=== PATIENT | female | born 1945 | race Caucasian/White ===

== ENCOUNTER 2019-09-05 05:01 | Inpatient (IN) | payer MEDICARE, SELFPAY ==
[2019-09-05] VITALS (8 sets, daily range): BP systolic 144–178; BP diastolic 69–96; PULSE 59–79; RESP 16–18; TEMP 36.9; O2SAT 94–98; BMI 31.9
--- NOTE | 2019-09-05 05:09 | ED_ITS ---
Documented by User: Randell Salas DO 09/05/19 06:07 HPI - Chest Pain General: Chief Complaint: Chest Pain Stated Complaint: CHEST PAIN Time Seen by Provider: 09/05/19 05:06 History of Present Illness: HPI narrative: 74-year-old lady with no prior history of coronary disease presents with right-sided chest pain that is resolved now. She says she woke up around 3 AM, and the pain started shortly thereafter. Of note, this lady's a few days ago, and the is later today. MD complaint: chest pain Onset (ago): hour(s) (299) Timing of current episode: constant and now resolved Onset: during rest Pain location: right chest Pain radiation: none Quality: sharp Relieving factors: nothing Context: recent illness Associated symptoms: Deny dyspnea, fever(s), nausea, palpitations or vomiting Treatment prior to arrival: aspirin Review of Systems Const: Denies: fever or chills Eyes: Denies: change in vision or blurry vision ENMT: Denies: post nasal drip or facial/sinus pain Card: Reports: chest pain; Denies: palpitations, irregular heart rhythm or edema Resp: Denies: shortness of breath, productive cough, non-productive cough or wheezing GI: Denies: nausea or vomiting : Denies: painful urination Musc: Denies: neck pain or back pain Skin/Breast: Denies: rash, itching or redness Neuro: Denies: headache, dizziness or vertigo Psych: Denies: anxiety PFSH ED PFSH: Medical History Chronic lymphocytic leukemia Type 2 diabetes mellitus Surgical History History of laparoscopic cholecystectomy Family History Other CAD (coronary artery disease) Diabetes Social History Smoking and tobacco status: never smoked Alcohol intake: never Substance/Drug Use: never Physical Exam Const: GENERAL APPEARANCE: well developed ORIENTATION/CONSCIOUSNESS: Yes oriented to person, Yes oriented to place and Yes oriented to time HENMT: COMMON NORMALS: normocephalic and external nose normal HEAD & SCALP: normocephalic FACE & SINUS: normal facial exam NOSE: external nose normal and no nasal discharge MOUTH: tongue normal TEETH & GINGIVA: Yes abnormal tooth and associated gingiva THROAT: posterior oropharynx normal; no peritonsillar mass Eye: COMMON NORMALS: PERRL, EOMs intact bilaterally and conjunctivae normal EYELID: eyelids normal CONJUNCTIVA: Yes conjunctivae normal PUPIL: Yes PERRL Neck/C-Spine: COMMON NORMALS: full ROM GENERAL: No tracheal deviation Chest: COMMONS NORMALS: inspection of chest normal CHEST: Yes tenderness Resp: COMMON NORMALS: clear to auscultation bilaterally EFFORT & INSPECTION: No tachypneic, No respiratory distress, No retractions, No uses accessory muscles and No tracheal deviation AUSCULTATION: clear to auscultation bilaterally, no rhonchi, no wheezes and lung sounds not diminished Cardio: COMMON NORMALS: regular rate and regular rhythm RATE: regular rate RHYTHM: regular rhythm HEART SOUNDS: no murmurs PERIPHERAL PULSES: radial pulses present GI: INSPECTION: No abdominal distension AUSCULTATION: No hyperactive bowel sounds and No hypoactive bowel sounds PALPATION: No guarding and No rigid Neuro: SENSORIUM/ORIENTATION: Yes oriented to person, Yes oriented to place and Yes oriented to time Psych: COMMON NORMALS: mental status grossly normal Skin: COMMON NORMALS: no rashes or lesions noted GENERAL SKIN EXAM: no rashes or lesions noted Course Vital Signs: Vital signs: Vital Signs Temperature 99.4 F 09/06/19 10:52 Pulse Rate 67 09/06/19 10:52 Respiratory Rate 22 H 09/06/19 10:52 Blood Pressure 142/76 09/06/19 10:52 Pulse Oximetry 96 09/06/19 10:52 MDM - Chest Pain MDM Narrative: Medical decision making narrative: 74-year-old lady with right- sided somewhat reproducible chest pain. Her EKG shows a sinus rhythm with a normal axis, and a rate of [address] changes. She will be checked out to Dr. Lance to follow-up on labs, x-ray, etc. Lab Data: Labs: Lab Results 09/05/19 09/05/19 09/05/19 Range/Units 05:10 05:10 05:10 WBC 32.2 H* (4.0-10.0) 10^3/ uL RBC 4.39 (4.1-5.3) 10^6/u L Hgb 13.5 (11.5-15.3) g/dL Hct 41.1 (37.0-47.0) % MCV 93.6 (81-99) fL MCH 30.8 (28.0-34.0) pg MCHC 32.8 (30.0-36.0) g/dL RDW 13.2 (12.1-15.1) % Plt Count 233 (130-400) 10^3/c mm MPV 11.0 H (7.4-10.4) fL Neut % (Auto) 10.6 % Lymph % (Auto) 86.9 % Owsley % (Auto) 1.5 % Eos % (Auto) 0.6 % Baso % (Auto) 0.2 % Neut # (Auto) 3.4 (1.8-7.7) 10^3/u L Lymph # (Auto) 28.0 H (0.8-4.8) 10^3/u L Owsley # (Auto) 0.5 (0.2-0.9) 10^3/u L Eos # (Auto) 0.2 (0.0-0.8) 10^3/u L Baso # (Auto) 0.1 (0.0-0.1) 10^3/u L Nucleated RBC % (a uto) 0 % Nucleated RBCs # 0.0 /100WBC PT 13.30 (10.5-13.3) SECO NDS INR 0.98 (0.8-1.2) APTT 27.2 (23.9-36.7) SECO NDS Sodium 145 (136-145) mmol/L Potassium 4.1 (3.5-5.1) mmol/L Chloride 109 H (98-107) mmol/L Carbon Dioxide 23 (22-29) mmol/L Anion Gap 17.1 (5-19) BUN 9 (8-23) mg/dL Creatinine 0.8 (0.5-0.9) mg/dL Glucose 178 H (65-115) mg/dL Estimat Average Gl ucose Hemoglobin A1c (4.0-6.0) % Calculated Osmolal ity 300 H (285-295) mOsm/k g Calcium 10.0 (8.5-10.5) mg/dL Total Bilirubin 0.3 (0.15-1.2) mg/dL AST 17 (0-32) U/L ALT 12 (0-33) U/L Alkaline Phosphata se 80 (35-105) IU/L Creatine Kinase 93 (26-192) U/L Troponin T Baselin e (0-10) ng/mL Troponin T 120 Min tolowa dee-ni' (0-10) ng/mL Delta Troponin T (0-10) ABS# NT-Pro-B Natriuret Pep 490 H (0-450) pg/mL Total Protein 6.4 L (6.6-8.7) g/dL Albumin 4.3 (3.5-5.2) g/dL Globulin 2.1 (1.3-4.6) g/dL Lipase (13-60) U/L TSH 4.23 H (0.27-4.20) uIU/ mL Urine Color (Yellow) Urine Appearance (CLEAR) Urine pH (5-7) Ur Specific Gravit y (1.005-1.030) Urine Protein (Negative) Urine Glucose (UA) (Normal) Urine Ketones (Negative) Urine Blood (Negative) Urine Nitrate (Negative) Urine Bilirubin (NEGATIVE) Urine Urobilinogen (Negative) mg/dL Ur Leukocyte Mercedes ase (Negative) Urine RBC (0-2) /hpf Urine WBC (0-5) /hpf Ur Squamous Epith Cells (0-5) Urine Bacteria (NONE) Urine Mucus Influenza Type A A g (Negative) POC Influenza B Ag (Negative) 09/05/19 09/05/19 09/05/19 Range/Units 05:10 05:10 05:10 WBC (4.0-10.0) 10^3/ uL RBC (4.1-5.3) 10^6/u L Hgb (11.5-15.3) g/dL Hct (37.0-47.0) % MCV (81-99) fL MCH (28.0-34.0) pg MCHC (30.0-36.0) g/dL RDW (12.1-15.1) % Plt Count (130-400) 10^3/c mm MPV (7.4-10.4) fL Neut % (Auto) % Lymph % (Auto) % Owsley % (Auto) % Eos % (Auto) % Baso % (Auto) % Neut # (Auto) (1.8-7.7) 10^3/u L Lymph # (Auto) (0.8-4.8) 10^3/u L Owsley # (Auto) (0.2-0.9) 10^3/u L Eos # (Auto) (0.0-0.8) 10^3/u L Baso # (Auto) (0.0-0.1) 10^3/u L Nucleated RBC % (a uto) % Nucleated RBCs # /100WBC PT (10.5-13.3) SECO NDS INR (0.8-1.2) APTT (23.9-36.7) SECO NDS Sodium (136-145) mmol/L Potassium (3.5-5.1) mmol/L Chloride (98-107) mmol/L Carbon Dioxide (22-29) mmol/L Anion Gap (5-19) BUN (8-23) mg/dL Creatinine (0.5-0.9) mg/dL Glucose (65-115) mg/dL Estimat Average Gl ucose 154 Hemoglobin A1c 7.0 H (4.0-6.0) % Calculated Osmolal ity (285-295) mOsm/k g Calcium (8.5-10.5) mg/dL Total Bilirubin (0.15-1.2) mg/dL AST (0-32) U/L ALT (0-33) U/L Alkaline Phosphata se (35-105) IU/L Creatine Kinase (26-192) U/L Troponin T Baselin e 37 H (0-10) ng/mL Troponin T 120 Min tolowa dee-ni' (0-10) ng/mL Delta Troponin T (0-10) ABS# NT-Pro-B Natriuret Pep (0-450) pg/mL Total Protein (6.6-8.7) g/dL Albumin (3.5-5.2) g/dL Globulin (1.3-4.6) g/dL Lipase 33 (13-60) U/L TSH (0.27-4.20) uIU/ mL Urine Color (Yellow) Urine Appearance (CLEAR) Urine pH (5-7) Ur Specific Gravit y (1.005-1.030) Urine Protein (Negative) Urine Glucose (UA) (Normal) Urine Ketones (Negative) Urine Blood (Negative) Urine Nitrate (Negative) Urine Bilirubin (NEGATIVE) Urine Urobilinogen (Negative) mg/dL Ur Leukocyte Mercedes ase (Negative) Urine RBC (0-2) /hpf Urine WBC (0-5) /hpf Ur Squamous Epith Cells (0-5) Urine Bacteria (NONE) Urine Mucus Influenza Type A A g (Negative) POC Influenza B Ag (Negative) 09/05/19 09/05/19 09/05/19 Range/Units 06:13 06:17 07:15 WBC (4.0-10.0) 10^3/ uL RBC (4.1-5.3) 10^6/u L Hgb (11.5-15.3) g/dL Hct (37.0-47.0) % MCV (81-99) fL MCH (28.0-34.0) pg MCHC (30.0-36.0) g/dL RDW (12.1-15.1) % Plt Count (130-400) 10^3/c mm MPV (7.4-10.4) fL Neut % (Auto) % Lymph % (Auto) % Owsley % (Auto) % Eos % (Auto) % Baso % (Auto) % Neut # (Auto) (1.8-7.7) 10^3/u L Lymph # (Auto) (0.8-4.8) 10^3/u L Owsley # (Auto) (0.2-0.9) 10^3/u L Eos # (Auto) (0.0-0.8) 10^3/u L Baso # (Auto) (0.0-0.1) 10^3/u L Nucleated RBC % (a uto) % Nucleated RBCs # /100WBC PT (10.5-13.3) SECO NDS INR (0.8-1.2) APTT (23.9-36.7) SECO NDS Sodium (136-145) mmol/L Potassium (3.5-5.1) mmol/L Chloride (98-107) mmol/L Carbon Dioxide (22-29) mmol/L Anion Gap (5-19) BUN (8-23) mg/dL Creatinine (0.5-0.9) mg/dL Glucose (65-115) mg/dL Estimat Average Gl ucose Hemoglobin A1c (4.0-6.0) % Calculated Osmolal ity (285-295) mOsm/k g Calcium (8.5-10.5) mg/dL Total Bilirubin (0.15-1.2) mg/dL AST (0-32) U/L ALT (0-33) U/L Alkaline Phosphata se (35-105) IU/L Creatine Kinase (26-192) U/L Troponin T Baselin e (0-10) ng/mL Troponin T 120 Min tolowa dee-ni' 74.00 H (0-10) ng/mL Delta Troponin T 37.00 H* (0-10) ABS# NT-Pro-B Natriuret Pep (0-450) pg/mL Total Protein (6.6-8.7) g/dL Albumin (3.5-5.2) g/dL Globulin (1.3-4.6) g/dL Lipase (13-60) U/L TSH (0.27-4.20) uIU/ mL Urine Color Yellow (Yellow) Urine Appearance Sl hazy (CLEAR) Urine pH 5 (5-7) Ur Specific Gravit y 1.020 (1.005-1.030) Urine Protein Neg (Negative) Urine Glucose (UA) Norm (Normal) Urine Ketones Negative (Negative) Urine Blood Neg (Negative) Urine Nitrate Negative (Negative) Urine Bilirubin Neg (NEGATIVE) Urine Urobilinogen Norm (Negative) mg/dL Ur Leukocyte Mercedes ase Trace H (Negative) Urine RBC 0-4 H (0-2) /hpf Urine WBC 5-10 H (0-5) /hpf Ur Squamous Epith Cells 5-10 H (0-5) Urine Bacteria Trace (NONE) Urine Mucus 1+ Influenza Type A A g Negative (Negative) POC Influenza B Ag Negative (Negative) Discharge Plan Discharge Patient Disposition: Placed in Observation Admit Provider: Nino Baxter Clinical Impression: Acute non-ST elevation myocardial infarction (NSTEMI) Condition: Stable Discharge Date/Time: 09/05/19 19:08 Sign Out Sign Out Data: Patient Sign Out occurred on 09/05/19 at 06:10. Patient's care was discussed, and care was transferred from to Brent Lugo DO. Coding Level of Care Code ED Pupil Personnel Services Director for Chg Fwd Exam Comprehensive Documented by User: Brent Lugo DO 09/06/19 14:12 HPI - Chest Pain General: Chief Complaint: Chest Pain Stated Complaint: CHEST PAIN Time Seen by Provider: 09/05/19 05:06 PFSH ED PFSH: Medical History Chronic lymphocytic leukemia Type 2 diabetes mellitus Surgical History History of laparoscopic cholecystectomy Family History Other CAD (coronary artery disease) Diabetes Social History Smoking and tobacco status: never smoked Alcohol intake: never Substance/Drug Use: never Course ED course: Care assumed a change of shift patient has a delta troponin of 37. She does have a history of diabetes mellitus. Unfortunately her just and she was forced to go to the this morning. We will put her on observation as an end STEMI. She is pain-free at this time is been given Lovenox and topical nitro. Vital Signs: Vital signs: Vital Signs Temperature 99.4 F 09/06/19 10:52 Pulse Rate 67 09/06/19 10:52 Respiratory Rate 22 H 09/06/19 10:52 Blood Pressure 142/76 09/06/19 10:52 Pulse Oximetry 96 09/06/19 10:52 MDM - Chest Pain Lab Data: Labs: Lab Results 09/05/19 09/05/19 09/05/19 Range/Units 05:10 05:10 05:10 WBC 32.2 H* (4.0-10.0) 10^3/ uL RBC 4.39 (4.1-5.3) 10^6/u L Hgb 13.5 (11.5-15.3) g/dL Hct 41.1 (37.0-47.0) % MCV 93.6 (81-99) fL MCH 30.8 (28.0-34.0) pg MCHC 32.8 (30.0-36.0) g/dL RDW 13.2 (12.1-15.1) % Plt Count 233 (130-400) 10^3/c mm MPV 11.0 H (7.4-10.4) fL Neut % (Auto) 10.6 % Lymph % (Auto) 86.9 % Owsley % (Auto) 1.5 % Eos % (Auto) 0.6 % Baso % (Auto) 0.2 % Neut # (Auto) 3.4 (1.8-7.7) 10^3/u L Lymph # (Auto) 28.0 H (0.8-4.8) 10^3/u L Owsley # (Auto) 0.5 (0.2-0.9) 10^3/u L Eos # (Auto) 0.2 (0.0-0.8) 10^3/u L Baso # (Auto) 0.1 (0.0-0.1) 10^3/u L Nucleated RBC % (a uto) 0 % Nucleated RBCs # 0.0 /100WBC PT 13.30 (10.5-13.3) SECO NDS INR 0.98 (0.8-1.2) APTT 27.2 (23.9-36.7) SECO NDS Sodium 145 (136-145) mmol/L Potassium 4.1 (3.5-5.1) mmol/L Chloride 109 H (98-107) mmol/L Carbon Dioxide 23 (22-29) mmol/L Anion Gap 17.1 (5-19) BUN 9 (8-23) mg/dL Creatinine 0.8 (0.5-0.9) mg/dL Glucose 178 H (65-115) mg/dL Estimat Average Gl ucose Hemoglobin A1c (4.0-6.0) % Calculated Osmolal ity 300 H (285-295) mOsm/k g Calcium 10.0 (8.5-10.5) mg/dL Total Bilirubin 0.3 (0.15-1.2) mg/dL AST 17 (0-32) U/L ALT 12 (0-33) U/L Alkaline Phosphata se 80 (35-105) IU/L Creatine Kinase 93 (26-192) U/L Troponin T Baselin e (0-10) ng/mL Troponin T 120 Min tolowa dee-ni' (0-10) ng/mL Delta Troponin T (0-10) ABS# NT-Pro-B Natriuret Pep 490 H (0-450) pg/mL Total Protein 6.4 L (6.6-8.7) g/dL Albumin 4.3 (3.5-5.2) g/dL Globulin 2.1 (1.3-4.6) g/dL Lipase (13-60) U/L TSH 4.23 H (0.27-4.20) uIU/ mL Urine Color (Yellow) Urine Appearance (CLEAR) Urine pH (5-7) Ur Specific Gravit y (1.005-1.030) Urine Protein (Negative) Urine Glucose (UA) (Normal) Urine Ketones (Negative) Urine Blood (Negative) Urine Nitrate (Negative) Urine Bilirubin (NEGATIVE) Urine Urobilinogen (Negative) mg/dL Ur Leukocyte Mercedes ase (Negative) Urine RBC (0-2) /hpf Urine WBC (0-5) /hpf Ur Squamous Epith Cells (0-5) Urine Bacteria (NONE) Urine Mucus Influenza Type A A g (Negative) POC Influenza B Ag (Negative) 09/05/19 09/05/19 09/05/19 Range/Units 05:10 05:10 05:10 WBC (4.0-10.0) 10^3/ uL RBC (4.1-5.3) 10^6/u L Hgb (11.5-15.3) g/dL Hct (37.0-47.0) % MCV (81-99) fL MCH (28.0-34.0) pg MCHC (30.0-36.0) g/dL RDW (12.1-15.1) % Plt Count (130-400) 10^3/c mm MPV (7.4-10.4) fL Neut % (Auto) % Lymph % (Auto) % Owsley % (Auto) % Eos % (Auto) % Baso % (Auto) % Neut # (Auto) (1.8-7.7) 10^3/u L Lymph # (Auto) (0.8-4.8) 10^3/u L Owsley # (Auto) (0.2-0.9) 10^3/u L Eos # (Auto) (0.0-0.8) 10^3/u L Baso # (Auto) (0.0-0.1) 10^3/u L Nucleated RBC % (a uto) % Nucleated RBCs # /100WBC PT (10.5-13.3) SECO NDS INR (0.8-1.2) APTT (23.9-36.7) SECO NDS Sodium (136-145) mmol/L Potassium (3.5-5.1) mmol/L Chloride (98-107) mmol/L Carbon Dioxide (22-29) mmol/L Anion Gap (5-19) BUN (8-23) mg/dL Creatinine (0.5-0.9) mg/dL Glucose (65-115) mg/dL Estimat Average Gl ucose 154 Hemoglobin A1c 7.0 H (4.0-6.0) % Calculated Osmolal ity (285-295) mOsm/k g Calcium (8.5-10.5) mg/dL Total Bilirubin (0.15-1.2) mg/dL AST (0-32) U/L ALT (0-33) U/L Alkaline Phosphata se (35-105) IU/L Creatine Kinase (26-192) U/L Troponin T Baselin e 37 H (0-10) ng/mL Troponin T 120 Min tolowa dee-ni' (0-10) ng/mL Delta Troponin T (0-10) ABS# NT-Pro-B Natriuret Pep (0-450) pg/mL Total Protein (6.6-8.7) g/dL Albumin (3.5-5.2) g/dL Globulin (1.3-4.6) g/dL Lipase 33 (13-60) U/L TSH (0.27-4.20) uIU/ mL Urine Color (Yellow) Urine Appearance (CLEAR) Urine pH (5-7) Ur Specific Gravit y (1.005-1.030) Urine Protein (Negative) Urine Glucose (UA) (Normal) Urine Ketones (Negative) Urine Blood (Negative) Urine Nitrate (Negative) Urine Bilirubin (NEGATIVE) Urine Urobilinogen (Negative) mg/dL Ur Leukocyte Mercedes ase (Negative) Urine RBC (0-2) /hpf Urine WBC (0-5) /hpf Ur Squamous Epith Cells (0-5) Urine Bacteria (NONE) Urine Mucus Influenza Type A A g (Negative) POC Influenza B Ag (Negative) 09/05/19 09/05/19 09/05/19 Range/Units 06:13 06:17 07:15 WBC (4.0-10.0) 10^3/ uL RBC (4.1-5.3) 10^6/u L Hgb (11.5-15.3) g/dL Hct (37.0-47.0) % MCV (81-99) fL MCH (28.0-34.0) pg MCHC (30.0-36.0) g/dL RDW (12.1-15.1) % Plt Count (130-400) 10^3/c mm MPV (7.4-10.4) fL Neut % (Auto) % Lymph % (Auto) % Owsley % (Auto) % Eos % (Auto) % Baso % (Auto) % Neut # (Auto) (1.8-7.7) 10^3/u L Lymph # (Auto) (0.8-4.8) 10^3/u L Owsley # (Auto) (0.2-0.9) 10^3/u L Eos # (Auto) (0.0-0.8) 10^3/u L Baso # (Auto) (0.0-0.1) 10^3/u L Nucleated RBC % (a uto) % Nucleated RBCs # /100WBC PT (10.5-13.3) SECO NDS INR (0.8-1.2) APTT (23.9-36.7) SECO NDS Sodium (136-145) mmol/L Potassium (3.5-5.1) mmol/L Chloride (98-107) mmol/L Carbon Dioxide (22-29) mmol/L Anion Gap (5-19) BUN (8-23) mg/dL Creatinine (0.5-0.9) mg/dL Glucose (65-115) mg/dL Estimat Average Gl ucose Hemoglobin A1c (4.0-6.0) % Calculated Osmolal ity (285-295) mOsm/k g Calcium (8.5-10.5) mg/dL Total Bilirubin (0.15-1.2) mg/dL AST (0-32) U/L ALT (0-33) U/L Alkaline Phosphata se (35-105) IU/L Creatine Kinase (26-192) U/L Troponin T Baselin e (0-10) ng/mL Troponin T 120 Min tolowa dee-ni' 74.00 H (0-10) ng/mL Delta Troponin T 37.00 H* (0-10) ABS# NT-Pro-B Natriuret Pep (0-450) pg/mL Total Protein (6.6-8.7) g/dL Albumin (3.5-5.2) g/dL Globulin (1.3-4.6) g/dL Lipase (13-60) U/L TSH (0.27-4.20) uIU/ mL Urine Color Yellow (Yellow) Urine Appearance Sl hazy (CLEAR) Urine pH 5 (5-7) Ur Specific Gravit y 1.020 (1.005-1.030) Urine Protein Neg (Negative) Urine Glucose (UA) Norm (Normal) Urine Ketones Negative (Negative) Urine Blood Neg (Negative) Urine Nitrate Negative (Negative) Urine Bilirubin Neg (NEGATIVE) Urine Urobilinogen Norm (Negative) mg/dL Ur Leukocyte Mercedes ase Trace H (Negative) Urine RBC 0-4 H (0-2) /hpf Urine WBC 5-10 H (0-5) /hpf Ur Squamous Epith Cells 5-10 H (0-5) Urine Bacteria Trace (NONE) Urine Mucus 1+ Influenza Type A A g Negative (Negative) POC Influenza B Ag Negative (Negative) Discharge Plan Discharge Patient Disposition: Placed in Observation Admit Provider: Nino Baxter Clinical Impression: Acute non-ST elevation myocardial infarction (NSTEMI) Condition: Stable Discharge Date/Time: 09/05/19 19:08 Sign Out Sign Out Data: Patient Sign Out occurred on 09/05/19 at 06:10. Patient's care was discussed, and care was transferred from to Brent L Horstman, DO. Coding Level of Care Code ED Pupil Personnel Services Director for Chg Fwd Exam Comprehensive
--- NOTE | 2019-09-05 05:09 | ECG_ITS ---
Measurements Intervals [place] Rate: 66 P: 9 TN: 145 QRS: -18 QRSD: 79 T: 18 QT: 411 QTc: 434 SINUS RHYTHM LOW QRS VOLTAGE IN PRECORDIAL LEADS [QRS DEFLECTION < 1.0 mV IN CHEST LEADS] No previous ECG available for comparison Electronically Signed On 09-05-2019 20:48:17 CDT by Sandra Holcomb M.D. [email or web address]
--- NOTE | 2019-09-05 05:09 | XR_ITS ---
WS: [id number] CHEST XRAY TECHNIQUE: Portable chest. CLINICAL INFORMATION: cp COMPARISON: None. FINDINGS: Heart: Normal cardiac silhouette. Lungs: Lungs are clear. No consolidation or pleural effusion. Bones: Normal visualized bony structures. XR/XR chest 1V portable [id number] IMPRESSION: No acute chest findings
[2019-09-05 05:27] LABS: Basophils # 0.1 10^3/uL (0.0-0.1); Basophils % 0.2 %; Eosinophils # 0.2 10^3/uL (0.0-0.8); Eosinophils % 0.6 %; Hematocrit 41.1 % (37.0-47.0); Hemoglobin 13.5 g/dL (11.5-15.3); Lymphocytes % 86.9 %; Mean Corpuscular HGB Conc 32.8 g/dL (30.0-36.0); Mean Corpuscular Hemoglobin 30.8 pg (28.0-34.0); Mean Corpuscular Volume 93.6 fL (81-99); Monocytes # 0.5 10^3/uL (0.2-0.9); Monocytes % 1.5 %; Neutrophils # 3.4 10^3/uL (1.8-7.7); Neutrophils % 10.6 %; Nucleated Red Blood Cells % 0 %; Platelet Count 233 10^3/cmm (130-400); Red Blood Count 4.39 10^6/uL (4.1-5.3); Red Cell Distribution Width 13.2 % (12.1-15.1)
[2019-09-05 05:33] LABS: INR 0.98 (0.8-1.2)
[2019-09-05 05:43] LABS: Troponin(5th) Baseline 37 ng/mL (0-10)
[2019-09-05 05:52] LABS: Alanine Aminotransferase 12 U/L (0-33); Albumin Level 4.3 g/dL (3.5-5.2); Alkaline Phosphatase 80 IU/L (35-105); Anion Gap 17.1 (5-19); Aspartate Amino Transferase 17 U/L (0-32); Blood Urea Nitrogen 9 mg/dL (8-23); Carbon Dioxide 23 mmol/L (22-29); Chloride 109 mmol/L (98-107); Creatine Phosphokinase 93 U/L (26-192); Globulin 2.1 g/dL (1.3-4.6); Glucose 178 mg/dL (65-115); NT Pro B Type Natriuretic Pept 490 pg/mL (0-450); Osmolality Calculated 300 mOsm/kg (285-295); Potassium 4.1 mmol/L (3.5-5.1); Sodium 145 mmol/L (136-145); Total Bilirubin 0.3 mg/dL (0.15-1.2); Total Protein 6.4 g/dL (6.6-8.7)
[2019-09-05 05:56] LABS: Partial Thromboplastin Time 27.2 SECONDS (23.9-36.7)
[2019-09-05 05:58] LABS: White Blood Count 32.2 10^3/uL (4.0-10.0)
--- NOTE | 2019-09-05 06:00 | PC.NURSE ---
Received critical WBC 32.2, advised Dr. aSlas, no orders at this time
[2019-09-05 06:32] LABS: Lipase 33 U/L (13-60)
[2019-09-05 06:39] LABS: Add Urine Microscopic? YES; Bilirubin Urine Neg (NEGATIVE); Blood Urine Neg (Negative); Glucose Urine UA Norm (Normal); Ketones Urine Negative (Negative); Leukocyte Esterase Urine Trace (Negative); Nitrate Urine Negative (Negative); Protein Urine Neg (Negative); Urine Appearance SL Hazy (CLEAR); Urine Color Yellow (Yellow); Urobilinogen Urine Norm (Negative); pH Urine 5 (5-7)
[2019-09-05 06:40] LABS: RBC Urine 0-4 /hpf (0-2)
[2019-09-05 06:41] LABS: Add Urine Culture? No; Bacteria Urine TRACE; Mucus Urine 1+
[2019-09-05 06:48] LABS: Influenza A by IFA Negative (Negative); Influenza B by IFA Negative (Negative)
--- NOTE | 2019-09-05 07:09 | ECG_ITS ---
Measurements Intervals [place] Rate: 62 P: 15 RI: 145 QRS: -20 QRSD: 86 T: 15 QT: 445 QTc: 452 SINUS RHYTHM No previous ECG available for comparison Electronically Signed On 09-05-2019 20:52:36 CDT by Sandra Holcomb M.D. [email or web address]
[2019-09-05] MEDS: nitroglycerin 1 gm/inch oint Pkt 0.5 INCH TOPICAL ×2 (08:29→19:48)
[2019-09-05] MEDS: enoxaparin 100 mg/mL Syringe 95 MG SUBCUT (08:30)
--- NOTE | 2019-09-05 09:10 | PC.NURSE ---
patients chest pain is 0/10
--- NOTE | 2019-09-05 10:49 | P.HP_ITS ---
Providers/Chief Complaint Chief Complaint: CHEST PAIN History of Present Illness Yadiel Sawyer is a 74 year old female that presented to the emergency department notes morning with complaints of chest discomfort. She describes this as an ache, in the center of her chest. She reports when she woke up this morning she had it. She denies any radiation but this may have been associated with a few palpitations. She denies any neck pain, nausea, diaphoresis. She reports no exertional discomfort lately, fever, cough, or any pulmonary symptoms. She reports she has had quite a bit of stress lately, with the of her and her's was to be today. Review of Systems General: Reports: 10 or more systems reviewed and unremarkable except in HPI and below Const: Denies: fever or chills Eyes: Denies: blurry vision ENMT: Denies: throat pain Card: Reports: chest pain and palpitations; Denies: swelling of feet/ankles Resp: Denies: shortness of breath GI: Denies: abdominal pain, nausea, vomiting, vomiting blood, blood in stool or black tarry stool : Denies: difficulty urinating Musc: Denies: neck pain Skin/Breast: Denies: rash Neuro: Denies: headache Psych: Reports: other (Stress, recent of ) Endo: Denies: excessive urination Harshil/Lymph: Denies: easy bruising All/Imm: Denies: hives Medications/Allergies Home Medications Medication Instructions Recorded Confirmed Last Taken Type aspirin 325 mg PO BID 09/05/19 09/05/19 09/05/19 History metformin 500 mg PO BID 09/05/19 09/05/19 Unknown History Allergies Allergy/AdvReac Type Severity Reaction Status Date / Time No Known Allergies Allergy Verified 09/05/19 05:09 PFSH Acute PFSH: Medical History (Updated 09/05/19 @ 10:51 by Nino Baxter MD) Chronic lymphocytic leukemia Type 2 diabetes mellitus Surgical History (Updated 09/05/19 @ 10:51 by Nino Baxter MD) History of laparoscopic cholecystectomy Family History (Updated 09/05/19 @ 10:51 by Nino Baxter MD) Other CAD (coronary artery disease) Diabetes Social History (Updated 09/05/19 @ 10:52 by Nino Baxter MD) Smoking and tobacco status: never smoked Alcohol intake: never Substance/Drug Use: never Vitals/I&O/Wt Last Vital Signs Temp 98.5 F 09/05/19 05:02 Pulse 63 09/05/19 10:40 Resp 18 09/05/19 10:40 BP 151/89 09/05/19 10:40 Pulse Ox 96 09/05/19 10:40 Weight last 48 hrs Weight 95.254 kg Physical Exam Narrative: EXAM NARRATIVE: General exam is no apparent distress HEENT: Pupils equally round. Oropharynx clear. Neck is supple no lymphadenopathy or thyromegaly Cardiovascular regular rate and rhythm without murmur, no S3 or S4 Lungs clear, no wheezing or crackles Abdomen is soft with positive bowel sounds, no obvious organomegaly was deferred Extremities no cyanosis clubbing or edema, pulses intact Skin no rash Neuro no focal deficits Data : 09/05/19 05:10 09/05/19 05:10 Other data: EKG demonstrates sinus rhythm, left axis deviation, no ST elevation or depression Chest x-ray appears normal A&P Assessment and plan (1) Acute non-ST elevation myocardial infarction (NSTEMI): She appears to have a non-ST elevation myocardial infarction with a positive troponin, and positive delta. However, with increased stress of 's Takatsubo's is also a possibility. Full dose anticoagulation Aspirin daily Lipitor 40 mg daily, lipid profile in the morning Nitroglycerin ointment Check TSH Consideration of Plavix load, but will defer to Dr. Ybarra Cardiology consultation Considered beta-jonh but somewhat bradycardic currently. Will hold until further information is available check echocardiogram Admission to cardiac stepdown unit Status: Acute Code(s): I21.4 - Non-ST elevation (NSTEMI) myocardial infarction Additional A&P Information Elevated white blood cell count, consistent with CLL per patient's past medical history History of diabetes. Will check A1c. Sliding scale insulin Full code Lovenox will serve for DVT prophylaxis. Attestations Medical Necessity Statement*: At this point will need greater than 2 midnight stay for evaluation and treatment of non-ST elevation myocardial infarction Time Spent in Patient Care: Greater than 35 minutes Coding Level of Care Code Acute Regional Account Director for [facility] Diagnoses Acute non-ST elevation myocardial infarction (NSTEMI) I21.4
[2019-09-05 10:59] LABS: Estmated Average Glucose 154; Thyroid Stimulating Hormone 4.23 uIU/mL (0.27-4.20)
--- NOTE | 2019-09-05 11:09 | ECG_ITS ---
Measurements Intervals [place] Rate: 61 P: 9 CO: 155 QRS: -23 QRSD: 82 T: 4 QT: 453 QTc: 457 SINUS RHYTHM BORDERLINE LEFT AXIS DEVIATION [QRS AXIS < -20] No previous ECG available for comparison Electronically Signed On 09-05-2019 20:52:56 CDT by Sandra Holcomb M.D. [email or web address]
[2019-09-05 11:34] LABS: Troponin 5 6HR 86.02 ng/mL (0-10)
[2019-09-05 11:39] LABS: Troponin 5 6HR Delta 49.02 ng/L (0-12)
--- NOTE | 2019-09-05 11:53 | PC.NURSE ---
patient resting quietly,no needs voiced
--- NOTE | 2019-09-05 14:21 | PC.NURSE ---
patient resting quietly, family at bedside
--- NOTE | 2019-09-05 15:54 | PC.NURSE ---
patient waiting patiently, snacks given
--- NOTE | 2019-09-05 19:19 | USCV_ITS ---
Yadiel Sawyer Age: 74 Gender: F : 1945 Exam Date: 09/05/2019 19:14 Ordering Phys: Nino Baxter MD Technologist: Jody Cherry [place]am Location[place] [facility] [place]ication: CHEST PAIN BP: 178 / 90 HR: 65 Rhythm: Sinus Technical Quality: Adequate MEASUREMENTS (Male / Female) Normal Values 2D ECHO LV Diastolic Diameter PLAX 4.2 cm 4.2 - 5.9 / 3.9 - 5.3 cm LV Systolic Diameter PLAX 3.2 cm LV Chamber Size 3.0 cm IVS Diastolic Thickness 1.5 cm 0.6 - 1.0 / 0.6 - 0.9 cm IVS Systolic Thickness 1.7 cm LVPW Diastolic Thickness 2.0 cm 0.6 - 1.0 / 0.6 - 0.9 cm LVPW Systolic Thickness 2.2 cm RV Chamber Size 2.8 cm LVOT Diameter 2.1 cm LV Ejection Fraction 2D Teich 48.9 % LV Ejection Fraction MOD 2C 64.8 % LV Ejection Fraction 2C AL 63.4 % LA Diameter 3.6 cm LA Width 3.3 cm LA Height 5.5 cm Aorta at Sinotubular Diameter 2.1 cm M-MODE LV Diastolic Diameter MM 5.3 cm 4.2 - 5.9 / 3.9 - 5.3 cm LV Systolic Diameter MM 3.2 cm LV Ejection Fraction MM Teich 70.8 % IVS Diastolic Thickness MM 1.1 cm 0.6 - 1.0 / 0.6 - 0.9 cm IVS Systolic Thickness MM 1.3 cm LVPW Diastolic Thickness MM 1.0 cm 0.6 - 1.0 / 0.6 - 0.9 cm LVPW Systolic Thickness MM 1.4 cm Aortic Annulus Diameter 3.6 cm LA Ao Ratio MM 1.0 MV E Point Septal Separation 0.7 cm DOPPLER AV Peak Velocity 145.0 cm/s LVOT Peak Velocity 116.0 cm/s AV Area Cont Eq vti 3.4 cm squared AV Area Cont Eq pk 2.7 cm squared MV Area PHT 2.3 cm squared Mitral E to A Ratio 0.9 MV E' Velocity 7.0 cm/s Mitral E to MV E' Ratio 12.3 Mitral E to LV E' Lateral Ratio 14.1 Mitral E to LV E' Septal Ratio 11.0 TR Peak Velocity 220.0 cm/s TR Peak Gradient 19.4 mmHg TV Peak E Velocity 66.0 cm/s Right Atrial Pressure 3.0 mmHg Pulmonary Artery Systolic Pressu 22.4 mmHg PV Peak Velocity 77.0 cm/s RV Acceleration Time 0.2 s RV Ejection Time 0.3 s RV AcT/ET 0.5 FINDINGS Left Ventricle Normal left ventricular size and systolic function, EF 56 %. Mild left ventricular hypertrophy. No regional wall motion abnormalities. Grade I/IV diastolic dysfunction (abnormal relaxation filling pattern), normal to mildly elevated filling pressures. Right Ventricle Normal right ventricular size and systolic function. Right Atrium Normal right atrial size. Left Atrium Mildly increased left atrial size. Mitral Valve Thickened mitral valve. Moderate mitral annular calcification. Aortic Valve Thickened aortic valve. Tricuspid Valve Trace tricuspid valve regurgitation. Pulmonic Valve Mild pulmonary valve regurgitation. Pericardium No pericardial effusion. Aorta Normal aortic annulus size. CONCLUSIONS Normal left ventricular size and systolic function, EF 56 %. Mild left ventricular hypertrophy. No regional wall motion abnormalities. Grade I/IV diastolic dysfunction (abnormal relaxation filling pattern), normal to mildly elevated filling pressures. Mildly increased left atrial size. Thickened mitral valve. Moderate mitral annular calcification. Thickened aortic valve. Trace tricuspid valve regurgitation. Mild pulmonary valve regurgitation. Estimated pulmonary artery peak systolic pressure 22 mmHg There is no pericardial effusion. There are no intracardiac masses. No previous study is available for comparison. Dr Neli Ybarra MD [facility] (Electronically Signed) Final Date: 05 September 2019 23:09 S
[2019-09-05] MEDS: enoxaparin 100 mg/mL Syringe SUBCUT (19:37)
--- NOTE | 2019-09-05 19:42 | P.CONIM_ITS ---
Providers/Reason For Consult Consulting Physican/Specialty*: CLAY Ybarra MD/cardiology Reason for Consult*: Patient with chest pain and elevated troponin T Attending Physician: Nino Baxter MD History of Present Illness History of Present Illness Yadiel Sawyer is a 74 year old female with a history of? Diet-controlled diabetes and chronic lymphatic leukemia, is admitted to the hospital through the emergency room, where she presented with complaints of chest pain. She was found to have elevated troponin T. Cardiology consult is requested for further cardiac evaluation recommendations. Patient has no previous history for coronary disease, myocardial infarction or congestive heart failure. She is a very poor historian. She is known to have some dementia. Apparently she lost her recently and had the on last Thursday. This morning around 3:00 she woke up with some discomfort in the chest. According the patient, the discomfort started getting worse. For that reason, she called the ambulance. The ambulance brought her to the emergency room. She describes the pain as tightness/heaviness in the mid substernal area. She did not have any associated nausea, vomiting or sweating. It was moderate in intensity. No other associated symptoms or radiation of pain. Last month also, she has been having some amount of chest discomfort which may wake her up from sleep around midnight. She also may have some fluttery feeling in the chest. The reliability of the patient's history is questionable. She seems to be changing the story with repeated questioning. Review of Systems Narrative: CONSTITUTIONAL: No fever or chills. EYES: No blurring of vision or other visual disturbances lately. ENT: No hoarseness of voice, auditory disturbances or sore throat. CARDIOVASCULAR: As mentioned above. RESPIRATORY: No significant cough. GASTROINTESTINAL: No hematemesis or melena. GENITOURINARY: No dysuria or hematuria. INTEGUMENTARY: No skin rashes or history of skin cancer. NEURO: Dementia as per the family PSYCHIATRIC: No history of psychosis or major depression. HEMATOLOGIC: No bleeding disorders or significant anemia. ENDOCRINE: No history of polyuria or polydipsia. MUSCULOSKELETAL: No recent joint pain or swelling. ALLERGY/IMMUNOLOGY: As mentioned above. Meds/Allergies Home Medications and Allergies Home Medications Medication Instructions Recorded Confirmed Type aspirin 325 mg PO BID 09/05/19 09/05/19 History metformin 500 mg PO BID 09/05/19 09/05/19 History Allergies Allergy/AdvReac Type Severity Reaction Status Date / Time No Known Allergies Allergy Verified 09/05/19 05:09 Current Medications Current Medications Acetaminophen (Tylenol) 650 mg PO Q6H PRN PRN Reason: Mild/Mod Pain Or Temp >/= 101 Aspirin (Aspirin Ec) 325 mg PO DAILY [facility] Atorvastatin Calcium (Lipitor) 40 mg PO DAILY [facility] Dextrose (D50w) 25 ml IVP ONCE PRN; Protocol PRN Reason: hypoglycemia protocol Dextrose (D50w) 50 ml IVP PRN PRN; Protocol PRN Reason: hypoglycemia protocol Enoxaparin Sodium (Lovenox) 100 mg 1 mg/kg (100 mg) SUBCUT Q12H [facility] Glucagon (Glucagen) 1 mg IM ONCE PRN; Protocol PRN Reason: Adult Acute Hypoglycemia Prot. Dextrose (D5w) 500 mls @ 100 mls/hr IV ONCE PRN; Protocol PRN Reason: Adult Acute Hypoglycemia Prot Insulin Aspart (Novolog) 0 unit SUBCUT TIDWM [facility]; Protocol Insulin Aspart (Novolog) 0 unit SUBCUT BEDTIME [facility]; Protocol Morphine Sulfate (Morphine) 2 mg IVP Q4H PRN PRN Reason: SEVERE PAIN Nitroglycerin (Nitrostat) 0.4 mg SUBLINGUAL Q5M PRN PRN Reason: CHEST PAIN Nitroglycerin (Nitro-Bid) 0.5 inch TOPICAL Q6H [facility] Ondansetron HCl (Zofran) 4 mg IVP Q6H PRN PRN Reason: vomiting, or N/V if npo PFSH Acute PFSH: Medical History Chronic lymphocytic leukemia Type 2 diabetes mellitus Surgical History History of laparoscopic cholecystectomy Family History Other CAD (coronary artery disease) Diabetes Social History Smoking and tobacco status: never smoked Alcohol intake: never Substance/Drug Use: never Vitals/I&O/Wt Last Vital Signs Temp 98.5 F 09/05/19 19:33 Pulse 71 09/05/19 19:33 Resp 16 09/05/19 19:33 BP 178/90 09/05/19 19:33 Pulse Ox 97 09/05/19 19:33 Weight last 48 hrs Weight 210 lb Physical Exam Narrative: EXAM NARRATIVE: GENERAL: The patient is alert and oriented times three. Not in any acute distress. HEENT: No significant pallor, icterus or lymphadenopathy. The pupils are reactant to light. Oral cavity: There are no mucous membrane lesions. Funduscopic examination: Fundus is not visualized NECK: Trachea appears to be central. No masses noted. No JVD or thyromegaly appreciated. No carotid bruit. RESPIRATORY: Chest is symmetrical. No intercostals muscle retraction or any accessory muscle activation. There is no chest wall tenderness. Breath sounds are heard bilaterally. No rales or rhonchi heard. No evidence of any consolidation. BREASTS: Deferred. HEART: The PMI is in the 5th left intercostals space just inside the midclavicular line. No palpable precordial events. S1 and S2 are normal. No S3 or S4 heard. No pericardial rub or any click heard. ABDOMEN: No vessel pulsations or distention. No tenderness. No organomegaly appreciated. No abdominal bruit. Bowel sounds are normally heard. : Deferred. RECTAL: Deferred. LYMPHATIC: No lymphadenopathy noted in the neck or groin. EXTREMITIES: No edema or cyanosis. No clubbing. The pulses are symmetrical bilaterally. The radial, femoral, dorsalis pedis and the posterior tibial pulses are palpated and found to be in good volume and amplitude. MUSCULOSKELETAL: No acute joint deformities or swelling SKIN: There are no significant scars or skin rash noted. NEUROPSYCHIATRIC: The patient is alert and oriented x3. Appears to be in a good mood. The higher functions are grossly within normal limits. No tremors or rigidity noted. Data Labs: Other Labs: Abnormal lab results 09/05/19 09/05/19 09/05/19 Range/Units 05:10 05:10 05:10 WBC 32.2 H* (4.0-10.0) 10^3/ uL MPV 11.0 H (7.4-10.4) fL Lymph # (Auto) 28.0 H (0.8-4.8) 10^3/u L Chloride 109 H (98-107) mmol/L Glucose 178 H (65-115) mg/dL Hemoglobin A1c (4.0-6.0) % Calculated Osmolal ity 300 H (285-295) mOsm/k g Troponin I 6 Hour (0-10) ng/mL Troponin I Hi Sens Del (0-12) ng/L Troponin T Baselin e 37 H (0-10) ng/mL Troponin T 120 Min united [place] (0-10) ng/mL Delta Troponin T (0-10) ABS# NT-Pro-B Natriuret Pep 490 H (0-450) pg/mL Total Protein 6.4 L (6.6-8.7) g/dL TSH 4.23 H (0.27-4.20) uIU/ mL Ur Leukocyte Mercedes ase (Negative) Urine RBC (0-2) /hpf Urine WBC (0-5) /hpf Ur Squamous Epith Cells (0-5) 09/05/19 09/05/19 09/05/19 Range/Units 05:10 06:17 07:15 WBC (4.0-10.0) 10^3/ uL MPV (7.4-10.4) fL Lymph # (Auto) (0.8-4.8) 10^3/u L Chloride (98-107) mmol/L Glucose (65-115) mg/dL Hemoglobin A1c 7.0 H (4.0-6.0) % Calculated Osmolal ity (285-295) mOsm/k g Troponin I 6 Hour (0-10) ng/mL Troponin I Hi Sens Del (0-12) ng/L Troponin T Baselin e (0-10) ng/mL Troponin T 120 Min united [place] 74.00 H (0-10) ng/mL Delta Troponin T 37.00 H* (0-10) ABS# NT-Pro-B Natriuret Pep (0-450) pg/mL Total Protein (6.6-8.7) g/dL TSH (0.27-4.20) uIU/ mL Ur Leukocyte Mercedes ase Trace H (Negative) Urine RBC 0-4 H (0-2) /hpf Urine WBC 5-10 H (0-5) /hpf Ur Squamous Epith Cells 5-10 H (0-5) 09/05/19 Range/Units 11:08 WBC (4.0-10.0) 10^3/ uL MPV (7.4-10.4) fL Lymph # (Auto) (0.8-4.8) 10^3/u L Chloride (98-107) mmol/L Glucose (65-115) mg/dL Hemoglobin A1c (4.0-6.0) % Calculated Osmolal ity (285-295) mOsm/k g Troponin I 6 Hour 86.02 H (0-10) ng/mL Troponin I Hi Sens Del 49.02 H* (0-12) ng/L Troponin T Baselin e (0-10) ng/mL Troponin T 120 Min united [place] (0-10) ng/mL Delta Troponin T (0-10) ABS# NT-Pro-B Natriuret Pep (0-450) pg/mL Total Protein (6.6-8.7) g/dL TSH (0.27-4.20) uIU/ mL Ur Leukocyte Mercedes ase (Negative) Urine RBC (0-2) /hpf Urine WBC (0-5) /hpf Ur Squamous Epith Cells (0-5) Imaging^: CXR: My impression: Checks x-ray revealed borderline cardiac silhouette. No lung infiltrate. No acute pathology noted EKG^: EKG 1: My Interpretation: Normal sinus rhythm with minimal left axis deviation. Early repolarization changes. A&P Assessment and plan (1) Acute non-ST elevation myocardial infarction (NSTEMI): Patient's clinical features are suggestive of a non-ST elevation myocardial infarction. Hemodynamically she seems to be stable. Currently she is pain-free. Her troponin T is trending up. The EKG is unremarkable. Patient may be treated with Lovenox, beta-jonh, aspirin, statin and Plavix. An echocardiogram would be helpful to evaluate LV function and rule out any other pathology. Status: Acute Code(s): I21.4 - Non-ST elevation (NSTEMI) myocardial infarction (2) Chronic lymphocytic leukemia: Patient is known to have chronic leukemia. This is being followed by a executive director in [place]. Status: Acute Code(s): C91.10 - Chronic lymphocytic leukemia of B-cell type not having achieved remission (3) Type 2 diabetes mellitus: Aggressive treatment of the diabetes would be appropriate. Status: Acute Qualifiers: Diabetes mellitus complication status: with hyperglycemia Diabetes mellitus long term care pharmacist insulin use: without long term care pharmacist use Qualified Code(s): E11.65 - Type 2 diabetes mellitus with hyperglycemia Code(s): E11.9 - Type 2 diabetes mellitus without complications (4) Uncontrolled stage 2 hypertension: The antihypertensive medications need to be optimized. Status: Acute Code(s): I10 - Essential (primary) hypertension Additional A&P Information Based on the clinical progress and the results of the above, further recommendations will be made Thank you for the opportunity to evaluate this patient and make these recommendations Coding Level of Care Code Acute Airdrop Systems Technician for [facility] Fwd Diagnoses Acute non-ST elevation myocardial infarction (NSTEMI) I21.4 Chronic lymphocytic leukemia C91.10 Type 2 diabetes mellitus E11.65 Diabetes mellitus complication status: with hyperglycemia Diabetes mellitus [facility] insulin use: without [facility] use Uncontrolled stage 2 hypertension I10
[2019-09-05 19:45] LABS: Glucose Point of Care 157 mg/dL (70-110)
[2019-09-05 21:35] LABS: Glucose Point of Care 183 mg/dL (70-110)
[2019-09-05] MEDS: metoprolol tartrate 25 mg Tablet 12.5 MG PO (22:15)
--- NOTE | 2019-09-05 22:28 | PC.NURSE ---
Patient arrived from the emergency room to room 103. Patient accompanied by family. Patient is alert and oriented to time, place, person, situation. optical lens manufacturing tech completed per flow sheet. Room orientation given to patient and family. Understanding verbalized. Will continue to care for patient. Call light within reach. Care continued.
[2019-09-06] VITALS (15 sets, daily range): BP systolic 99–161; BP diastolic 58–89; PULSE 45–67; RESP 11–22; TEMP 36.8–37.4; O2SAT 90–96
--- NOTE | 2019-09-06 01:48 | PC.NURSE ---
WAS NOTIFIED BECAUSE PT HR 51 AND BP 144/69. DR ANDERSON SAID TO HOLD NITROGLYCERIN.
[2019-09-06 04:24] LABS: Basophils % 0.2 %; Eosinophils # 0.2 10^3/uL (0.0-0.8); Eosinophils % 0.9 %; Hematocrit 36.6 % (37.0-47.0); Hemoglobin 11.6 g/dL (11.5-15.3); Lymphocytes # 21.8 10^3/uL (0.8-4.8); Lymphocytes % 84.7 %; Mean Corpuscular HGB Conc 31.7 g/dL (30.0-36.0); Mean Corpuscular Hemoglobin 30.4 pg (28.0-34.0); Mean Corpuscular Volume 96.1 fL (81-99); Mean Platelet Volume 11.4 fL (7.4-10.4); Monocytes # 0.6 10^3/uL (0.2-0.9); Monocytes % 2.4 %; Neutrophils % 11.6 %; Nucleated Red Blood Cells % 0 %; Platelet Count 196 10^3/cmm (130-400); Red Blood Count 3.81 10^6/uL (4.1-5.3); Red Cell Distribution Width 13.2 % (12.1-15.1); White Blood Count 25.7 10^3/uL (4.0-10.0)
[2019-09-06 04:45] LABS: Anion Gap 14.1 (5-19); Blood Urea Nitrogen 8 mg/dL (8-23); Calcium 9.4 mg/dL (8.5-10.5); Carbon Dioxide 24 mmol/L (22-29); Chloride 107 mmol/L (98-107); Chol HDL Ratio 5.35 mg/dL (0.0-4.40); Cholesterol 166 mg/dL (0-200); Glucose 147 mg/dL (65-115); HDL Cholesterol 31 mg/dL (60-100); LDL Cholesterol Calculated 102 mg/dL (50-129); LDL HDL Ratio 3.29 RATIO (0.00-3.22); Osmolality Calculated 291 mOsm/kg (285-295); Potassium 4.1 mmol/L (3.5-5.1); Sodium 141 mmol/L (136-145); Triglycerides 167 mg/dL (0-150)
[2019-09-06 06:21] LABS: Glucose Point of Care 119 mg/dL (70-110)
[2019-09-06] MEDS: enoxaparin 100 mg/mL Syringe SUBCUT (07:10)
--- NOTE | 2019-09-06 08:08 | P.PN_ITS ---
Subjective Subjective: Interval history: Patient denies any chest pain. Her blood pressure is a stage II. Denies any shortness of breath. Echocardiogram results as mentioned below. Medications: Medication Review Details: Current Medications Acetaminophen (Tylenol) 650 mg PO Q6H PRN PRN Reason: Mild/Mod Pain Or Temp >/= 101 Amlodipine Besylate (Norvasc) 5 mg PO DAILY [facility] Amlodipine Besylate (Norvasc) 5 mg PO NOW [facility] Aspirin (Aspirin Ec) 325 mg PO DAILY [facility] Atorvastatin Calcium (Lipitor) 40 mg PO DAILY [facility] Dextrose (D50w) 25 ml IVP ONCE PRN; Protocol PRN Reason: hypoglycemia protocol Dextrose (D50w) 50 ml IVP PRN PRN; Protocol PRN Reason: hypoglycemia protocol Enoxaparin Sodium (Lovenox) 100 mg 1 mg/kg (100 mg) SUBCUT Q12H [facility] [place] Last Admin: 09/06/19 07:10 Dose: 100 mg Documented by: Glucagon (Glucagen) 1 mg IM ONCE PRN; Protocol PRN Reason: Adult Acute Hypoglycemia Prot. Dextrose (D5w) 500 mls @ 100 mls/hr IV ONCE PRN; Protocol PRN Reason: Adult Acute Hypoglycemia Prot Insulin Aspart (Novolog) 0 unit SUBCUT TIDWM [facility]; Protocol Last Admin: 09/06/19 07:02 Dose: Not Given Documented by: Insulin Aspart (Novolog) 0 unit SUBCUT BEDTIME [facility]; Protocol Last Admin: 09/05/19 22:16 Dose: 2 unit Documented by: Metoprolol Tartrate (Lopressor) 12.5 mg PO BID [facility] Morphine Sulfate (Morphine) 2 mg IVP Q4H PRN PRN Reason: SEVERE PAIN Nitroglycerin (Nitrostat) 0.4 mg SUBLINGUAL Q5M PRN PRN Reason: CHEST PAIN Nitroglycerin (Nitro-Bid) 0.5 inch TOPICAL Q6H [facility] [place] Last Admin: 09/06/19 01:47 Dose: Not Given Documented by: Ondansetron HCl (Zofran) 4 mg IVP Q6H PRN PRN Reason: vomiting, or N/V if npo Vitals/I&O/Wt Last Vital Signs Temp 98.7 F 09/06/19 07:14 Pulse 56 L 09/06/19 07:14 Resp 20 H 09/06/19 07:14 BP 161/77 09/06/19 07:14 Pulse Ox 96 09/06/19 07:14 Weight last 48 hrs Weight 210 lb Physical Exam Narrative: EXAM NARRATIVE: GENERAL: The patient is alert and oriented times three. Not in any acute distress. HEENT: No significant pallor, icterus or lymphadenopathy. NECK: Trachea appears to be central. No masses noted. No JVD or thyromegaly appreciated. No carotid bruit. RESPIRATORY: Chest is symmetrical. No intercostals muscle retraction or any accessory muscle activation. There is no chest wall tenderness. Breath sounds are heard bilaterally. No rales or rhonchi heard. No evidence of any consolidation. BREASTS: Deferred. HEART: The PMI is in the 5th left intercostals space just inside the midclavicular line. No palpable precordial events. S1 and S2 are normal. No S3 or S4 heard. No pericardial rub or any click heard. ABDOMEN: No vessel pulsations or distention. No tenderness. No organomegaly appreciated. No abdominal bruit. Bowel sounds are normally heard. : Deferred. RECTAL: Deferred. LYMPHATIC: No lymphadenopathy noted in the neck or groin. EXTREMITIES: No edema or cyanosis. No clubbing. The pulses are symmetrical bilaterally. The radial, femoral, dorsalis pedis and the posterior tibial pulses are palpated and found to be in good volume and amplitude. MUSCULOSKELETAL: No acute joint deformities or swelling SKIN: There are no significant scars or skin rash noted. NEUROPSYCHIATRIC: The patient is alert and oriented x3. Appears to be in a good mood. The higher functions are grossly within normal limits. No tremors or rigidity noted. Data : 09/06/19 03:05 09/06/19 03:05 Echo: My impression: Normal left ventricular size and systolic function, EF 56 %. Mild left ventricular hypertrophy. No regional wall motion abnormalities. Grade I/IV diastolic dysfunction (abnormal relaxation filling pattern), normal to mildly elevated filling pressures. Mildly increased left atrial size. Thickened mitral valve. Moderate mitral annular calcification. Thickened aortic valve. Trace tricuspid valve regurgitation. Mild pulmonary valve regurgitation. Estimated pulmonary artery peak systolic pressure 22 mmHg There is no pericardial effusion. There are no intracardiac masses. No previous study is available for comparison. EKG 1: My Interpretation: The EKG from today revealed a sinus rhythm with minimal left axis deviation. No acute ST-T changes. A&P Assessment and plan (1) Acute non-ST elevation myocardial infarction (NSTEMI): Patient's clinical features are suggestive of a non-ST elevation myocardial infarction. Hemodynamically she seems to be stable. Currently she is pain-free. Her troponin T is trending down. The echocardiogram revealed normal LV ejection fraction. No significant wall motion normalities noted. For further evaluation of her coronary status, a cardiac catheterization would be appropriate. The risk of bleeding, hematoma, vascular injury, myocardial infarction, CVA, renal failure and other concomitant complications were e xplained in detail. Patient and the family understood this well and consented to proceed. We will keep her n.p.o. for now. After reviewing the cardiac catheterization data, further recommendations will be made. Status: Acute Code(s): I21.4 - Non-ST elevation (NSTEMI) myocardial infarction (2) Chronic lymphocytic leukemia: Patient is known to have chronic leukemia. This is being followed by a wireless manager in [place]. May continue on the current follow-up schedule Status: Acute Code(s): C91.10 - Chronic lymphocytic leukemia of B-cell type not having achieved remis yaniv (3) Type 2 diabetes mellitus: Aggressive treatment of the diabetes would be appropriate. The blood sugar seems to be coming down Status: Acute Qualifiers: Diabetes mellitus complication status: with hyperglycemia Diabetes mellitus jail insulin use: without tank terminal gauger use Qualified Code(s): E11.65 - Type 2 diabetes mellitus with hyperglycemia Code(s): E11.9 - Type 2 diabetes mellitus without complications (4) Uncontrolled stage 2 hypertension: The antihypertensive medications need to be optimized. The blood pressure seems to be coming down. Status: Acute Code(s): I10 - Essential (primary) hypertension Additional A&P Information Dyslipidemia -continue on the current medications based on the clinical progress and the results of the above, further nicholas mmendations will be made Thank you for the opportunity to evaluate this patient and make these recom mendations Attestations Medical Necessity Statement*: Patient requires continued hospital stay for close monitoring and further management Coding Level of Care Code Acute Senior Business Development Manager for [facility] Fwd Diagnoses Acute non-ST elevation myocardial infarction (NSTEMI) I21.4 Chronic lymphocytic leukemia C91.10 Type 2 diabetes mellitus E11.65 Diabetes mellitus complication status: with hyperglycemia Diabetes mellitus tank terminal gauger insulin use: without tank terminal gauger use Uncontrolled stage 2 hypertension I10
--- NOTE | 2019-09-06 08:10 | ECG_ITS ---
Measurements Intervals [place] Rate: 73 P: 11 MD: 145 QRS: -21 QRSD: 86 T: 11 QT: 418 QTc: 461 SINUS RHYTHM BORDERLINE LEFT AXIS DEVIATION [QRS AXIS < -20] Compared to ECG 09/05/2019 11:28:35 No significant changes Electronically Signed On 09-07-2019 9:05:43 CDT by Rene Lewis M.D. [email or web address]
[2019-09-06 08:47] LABS: Troponin T (5th) Once 81 ng/mL (0-10)
[2019-09-06] MEDS: atorvastatin 40 mg Tablet PO (09:30)
[2019-09-06] MEDS: amlodipine 5 mg Tablet PO (09:30)
[2019-09-06] MEDS: metoprolol tartrate 25 mg Tablet 12.5 MG PO ×2 (09:30→18:32)
[2019-09-06] MEDS: aspirin 325 mg EC Tablet PO (09:30)
[2019-09-06] MEDS: isosorbide mononitrate 20 mg Tablet 30 MG PO (09:33)
[2019-09-06 11:31] LABS: Glucose Point of Care 137 mg/dL (70-110)
--- NOTE | 2019-09-06 12:39 | P.PN_ITS ---
Subjective Subjective: Interval history: Yadiel reports no chest discomfort overnight. An angiogram is planned for today. Medications: Reviewed: Yes Vitals/I&O/Wt Last Vital Signs Temp 99.4 F 09/06/19 10:52 Pulse 67 09/06/19 10:52 Resp 22 H 09/06/19 10:52 BP 142/76 09/06/19 10:52 Pulse Ox 96 09/06/19 10:52 Weight last 48 hrs Weight 95.254 kg Physical Exam Narrative: EXAM NARRATIVE: General exam is no apparent distress Cardiovascular regular rate and rhythm without murmur Lungs clear Abdomen is soft with positive bowel sounds Extremities no cyanosis clubbing or edema Data : 09/06/19 03:05 09/06/19 03:05 A&P Assessment and plan (1) Acute non-ST elevation myocardial infarction (NSTEMI): She appears to have a non-ST elevation myocardial infarction with a positive troponin, and positive delta. However, with increased stress of 's Takatsubo's is also a possibility. Full dose anticoagulation Aspirin daily Lipitor 40 mg daily, lipid profile in the morning Nitroglycerin ointment Metoprolol initiated Appreciate cardiology consultation Echocardiogram has been completed and demonstrated preserved EF, 1/4 diastolic dysfunction, no major valvular abnormalities. Ed today Status: Acute Code(s): I21.4 - Non-ST elevation (NSTEMI) myocardial infarction Additional A&P Information Elevated white blood cell count, consistent with CLL per patient's past medical history History of diabetes. Sliding scale insulin. Hemoglobin A1c was 7.0 Full code Lovenox will serve for DVT prophylaxis. Attestations Medical Necessity Statement*: Needs continued hospital stay for further delineation of non-ST elevation myocardial infarction with angiogram. Coding Level of Care Code Acute Sales And Service Change Leader for [facility] Diagnoses Acute non-ST elevation myocardial infarction (NSTEMI) I21.4
[2019-09-06] MEDS: sodium chloride 0.9% 1,000 ML 50 ML IV (17:15)
[2019-09-06 17:22] LABS: Glucose Point of Care 124 mg/dL (70-110)
--- NOTE | 2019-09-06 18:01 | XACV_ITS ---
Exam Room: [facility] Ht: 173 cm Wt: 95 kg BSA: 2.17 m2 Gender: Female : 1945 Any Known Allergies: No known allergies Exam Priority: Routine Procedure(s): Procedure Description: Diagnostic procedure Diagnostic Cath Status: Urgent Diagnostic Findings 1st Diag: Moderate 60% stenosis, YANELI: 3 flow. 2nd Diag: Severe 95% stenosis, YANELI: 1 flow. pCIRC: Moderate 50% stenosis, YANELI: 3 flow. RPDA: Severe 90% stenosis, YANELI: 3 flow. Coronary angiography shows right dominance. The left main is a medium caliber vessel which was found to have around 20% tubular narrowing in the distal segment. The left artery descending artery is a medium caliber vessel which appears to taper off towards the LV apex. The first diagonal branches found to have around 50 to 50% diffuse narrowing proximally, involving the ostium. The second diagonal branch is a relatively smaller caliber vessel. It was found to be subtotally occluded with a very trickling of flow in to the distal segment of the artery. The artery appears to be diffusely diseased. The mid and distal segment of the artery was found to have mild diffuse disease. The proximal left anterior descending artery was found to have moderate diffuse calcification. The left circumflex artery is a medium caliber vessel which patient to have 40 to 50% diffuse irregular narrowing in the proximal segment. The obtuse marginal branches were found to have mild diffuse disease proximally. The right coronary artery, is a dominant vessel which was found to have moderate diffuse ectasia in the proximal segment. Mild diffuse disease was noted in the mid and distal segment of the artery. The PDA branch was found to have mild to moderate diffuse disease with a high-grade segmental lesion in the distal segment of the artery. This segment of the artery appears to be of relatively small caliber. Conclusions 74-year-old white female, is admitted to hospital with features of a non-ST relation myocardial infarction. For further evaluation of her cardiac status, a cardiac catheterization was recommended. Patient underwent left heart catheterization with a left and right coronary angiogram and LV angiogram today. The findings are as follows. Normal left ventricular systolic function. Ejection fraction of 55%. LVEDP of 19 mmHg. Subtotal occlusion of the small second diagonal branch of the left anterior descending artery. High-grade lesion in the distal posterior descending artery; mild to moderate diffuse this is the other vessels. Moderate diffuse coronary calcification. Ectasia of the proximal right coronary artery. Recommendations Continue current medical management and risk factor modification. Diagnostic RX Recommendation: medical therapy and/or counseling LV EDP: 19 mmHg Ejection Fraction: 55.0 % Left Ventriculography Findings: LV gram was performed the VALENTE position. The LV cavity appears to be normal size. LV ejection fraction was around 55%. LVEDP was 19 mmHg. No significant mitral valve prolapse or mitral regurgitation. Pressures Phase:Rest AO : 142 mmHg / 48 mmHg ( 84 mmHg ) @ 2:56:00 PM 134 mmHg / 52 mmHg ( 83 mmHg ) @ 2:56:00 PM LV : 107 mmHg / 3 mmHg / @ 2:55:00 PM 109 mmHg / 3 mmHg / @ 2:55:00 PM 107 mmHg / 0 mmHg / @ 2:55:00 PM 116 mmHg / 7 mmHg / @ 2:56:00 PM Valves Phase:DefaultPhase AV : 0.0 mmHg @ 8:09:43 PM AV Mean Gradient: 0.0 mmHg @ 8:09:43 PM 0.0 mmHg @ 8:09:43 PM Clinical Evaluation EBL: 5mL-10mL Procedural Details Procedure Consent Obtained. Pre-Procedure Time Out. Identified patient by full name and date of as verbalized by the patient/guarantor. Does the consent match the physician's order: Yes. Accurate & Complete Informed Consent: Yes. Inpatient/Outpatient History & Physical on Chart: Yes. If H&P is completed, is and addenduem needed: No; If yes, is the addendum complete: N/A. Visualize and Verify Site with Patient/Guarantor: N/A. Relevant Radiology Images available: N/A. Pre-op teaching completed and patient verbalized understanding. The risks, benefits, and alternatives of sedation and/or procedure were discussed by physician. The patient agrees to continue. Procedure started. [facility] Clinical Fraility Score: 4: Vulnerable. Forensic Investigator Indications: ACS > 24 hours. Chest Pain Symptom Assessment: Atypical Angina. Cardiovascular Instability: No. Correct patient, site and procedure confirmed by cath team. PERRLA. Strong, equal hand crop scout bilaterally. Lungs clear x 5 lobes. IV Site on Arrival: 20 gauge in the left wrist. IV Fluids: 0.9% NaCl at KVO. 0 mL infused prior to parking lot laborer. Pre Procedural Pulses: bilateral radial was 2+. Pre Procedural Pulses: bilateral dorsalis pedis was 1+. Pre Procedural Pulses: bilateral posterior tibial was 1+. Oxygen started at 2liters/min via nasal canula. bilateral groins was prepped with chloroprep then draped in the usual sterile fashion. right radial was prepped with chloroprep then draped in the usual sterile fashion. Baseline sample Acquired. HR: 55 BPM. Physician notified. Jonny Banuelos WOOL HANKER was relieved by Missy Reaves RT as monitoring person. Physician notified. Physician arrived. Physician scrubbed in. Immediate Pre-Procedure Time Out. Correct Patient: Yes; Correct Procedure: Yes; Correct Site: Yes; Correct Patient Position: Yes; Correct Supplies: Yes; Dried Flammable Prep: Yes ; Blood Products Available: N/A;. Lidocaine 1% infiltrated to the right radial. Arterial access obtained. A 5 danish Chandan catheter in over wire. Multiple views taken of left coronary artery. Catheter redirected to the RCA. Catheter out. A 5 danish JR4 catheter in over wire. Catheter out. A 5 danish Angled Pig catheter in over wire. EDP Sample taken: LV 107/3,20; HR: 59 BPM; SpO2: 94%. LV gram performed in VALENTE @ 10 mL/second for a total of 30 mL. EDP Sample taken: LV 107/-1,5; HR: 70 BPM; SpO2: 94%. Pullback taken: LV 116/7,22; AO 142/48(84); Mean: 0mmHg, Peak to Peak: 0mmHg, SEP: 7sec/min; HR: 64 BPM; SpO2: 93%. Catheter out. Dr. Lewis notified. Dr. lewis arrived. TR band placed. Hemostasis obtained. Post Procedure: Pulses reassessed and unchanged. PERRLA. Strong, equal hand crop scout bilaterally. No VTE prophylaxis required. Contrast type used: Omnipaque 300 mgI/mL, 500 mL bottle. Contrast Material : Omnipaque 119 ml. Medication's Wasted: Heparin = 1000 units. Medication's Wasted: Lidocaine 1% = 18 mL. Medication's Wasted: Nitro = 49.8 mg. Medication's Wasted: Other = Versed 50 mg. Medication's Wasted: Other = fentanyl 3mg. Total IV fluids: 300 mL. Post-op diagnosis: severe small vessel disease. Complications: none. Estimated blood loss: 5mL-10mL. Procedure completed. Patient transferred by wheelchair to 1st floor. A TR Band was successful obtaining hemostatsis at the Right Radial artery insertion site. Vital chart was stopped. Site: Right Radial artery Sheath Size: 6 Fr Hemostasis Method: TR Band Hemostasis Success: Successful Procedure Medications Start: 7:33 PM Stop: 7:33 PM Medication: Versed Amount: 1 mg Route: I.V. Start: 7:33 PM Stop: 7:33 PM Medication: Fentanyl Amount: 50 mcg Route: I.V. Start: 7:39 PM Stop: 7:39 PM Medication: Verapamil Amount: 5 mg Route: I.A. Start: 7:40 PM Stop: 7:40 PM Medication: Nitrogylcerin Amount: 200 mcg Route: I.A. Start: 7:41 PM Stop: 7:41 PM Medication: Versed Amount: 1 mg Route: I.V. Start: 7:43 PM Stop: 7:43 PM Medication: 0.9% Saline Amount: 250 ml Route: I.V. bolus Start: 7:45 PM Stop: 7:45 PM Medication: Heparin Amount: 5000 units Route: I.V. I, the attending physician, have reviewed and verified all procedure medications. Yes, all medications given per verbal order History/Risk Factors Hypertension: No Dyslipidemia: No Peripheral Arterial Disease (PAD): No Myocardial Infarction (OR): No Obesity: No Renal Disease: No Tobacco Use: Never Prior Interventions PCI: No CABG: No Valve Surgery: No Report Signatures Finalized by:Dr Neli Ybarra MD [facility] on 09/06/2019 9:02:40 PM
[2019-09-06] MEDS: diphenhydrAMINE 50 mg Capsule PO (19:07)
--- NOTE | 2019-09-06 20:21 | PC.NURSE ---
PT CAME BACK FROM SENIOR PROCESS CONTROL TECH TO CSU 103. PT HAS A TR BAND ON RIGHT RADIAL. NO HEMATOMA PRESENT. PULSE IS PALPABLE DISTAL OF TR BAND. VS HR 52, BP 123/69, RR 16, SPO2 92%. PT IS SLEEPING AT THIS TIME. WILL CONTINUE TO MONITOR.
[2019-09-06 20:25] LABS: Glucose Point of Care 121 mg/dL (70-110)
--- NOTE | 2019-09-06 20:42 | PC.NURSE ---
NITRO PASTE WAS HELD. DR ANDERSON APPROVED. HR 50 BP 123/69. WILL CONTINUE TO MONITOR.
--- NOTE | 2019-09-06 23:31 | PC.NURSE ---
TR band removed at this time. Began taking air out at 2200 per order 2 ml at a time. Dressing applied to right wrist. No bleeding or hematoma noted. VSS. Patient educated on post-cath activity restrictions and care and verbalized understanding. Will continue to monitor.
[2019-09-07] VITALS (7 sets, daily range): BP systolic 86–142; BP diastolic 47–76; PULSE 44–63; RESP 14–20; TEMP 36.8–37.1; O2SAT 93–99
--- NOTE | 2019-09-07 02:11 | PC.NURSE ---
NITRO PASTE WAS HELD. DR ANDERSON APPROVED. HR 48 BP 123/57. WILL CONTINUE TO MONITOR.
[2019-09-07 04:04] LABS: Basophils % 0.2 %; Eosinophils # 0.2 10^3/uL (0.0-0.8); Hemoglobin 11.1 g/dL (11.5-15.3); Lymphocytes # 20.5 10^3/uL (0.8-4.8); Lymphocytes % 86.5 %; Mean Corpuscular HGB Conc 30.8 g/dL (30.0-36.0); Mean Corpuscular Hemoglobin 30.6 pg (28.0-34.0); Mean Corpuscular Volume 99.2 fL (81-99); Mean Platelet Volume 11.1 fL (7.4-10.4); Monocytes # 0.3 10^3/uL (0.2-0.9); Monocytes % 1.3 %; Neutrophils # 2.6 10^3/uL (1.8-7.7); Neutrophils % 10.9 %; Nucleated Red Blood Cells % 0 %; Platelet Count 200 10^3/cmm (130-400); Red Blood Count 3.63 10^6/uL (4.1-5.3); Red Cell Distribution Width 13.3 % (12.1-15.1); White Blood Count 23.7 10^3/uL (4.0-10.0)
[2019-09-07 04:45] LABS: Anion Gap 14.7 (5-19); Blood Urea Nitrogen 10 mg/dL (8-23); Calcium 9.3 mg/dL (8.5-10.5); Carbon Dioxide 21 mmol/L (22-29); Chloride 108 mmol/L (98-107); Glucose 121 mg/dL (65-115); Osmolality Calculated 287 mOsm/kg (285-295); Potassium 3.7 mmol/L (3.5-5.1); Sodium 140 mmol/L (136-145)
[2019-09-07] MEDS: enoxaparin 40 mg/0.4 mL Syringe SUBCUT (05:04)
--- NOTE | 2019-09-07 06:38 | PC.NURSE ---
DR ZAMARRIPA WANTS TO D/C NITRO PASTE AND HOLD MORNING DOSE OF METOPROLOL. WILL PASS ON TO DAY SHIFT.
[2019-09-07 07:11] LABS: Glucose Point of Care 107 mg/dL (70-110)
[2019-09-07] MEDS: aspirin 325 mg EC Tablet PO (09:53)
[2019-09-07] MEDS: amlodipine 5 mg Tablet PO (09:53)
[2019-09-07] MEDS: atorvastatin 40 mg Tablet PO (09:53)
[2019-09-07 11:25] LABS: Glucose Point of Care 148 mg/dL (70-110)
--- NOTE | 2019-09-07 11:43 | PM.DCS ---
Discharge Providers Date of Admission: 09/05/19 09:37 Date of Discharge: September 07, 2019 Attending Provider at Admission: Nino Baxter MD Attending Provider at Discharge: Nino Baxter MD Diagnoses at Discharge Discharge Diagnosis (1) Acute non-ST elevation myocardial infarction (NSTEMI): Status: Acute Problem details: Angiogram demonstrated coronary disease, subtotal occlusion second diagonal of LAD, high-grade lesion distal PDA, mild to moderate diffuse disease. No intervention could be done (2) Chronic lymphocytic leukemia: Status: Acute (3) Type 2 diabetes mellitus: Status: Acute Problem details: May resume metformin on the Qualifiers: Diabetes mellitus assisted insulin use: without assisted use Diabetes mellitus complication status: with hyperglycemia Qualified Code(s): E11.65 - Type 2 diabetes mellitus with hyperglycemia (4) Uncontrolled stage 2 hypertension: Status: Acute Problem details: Improved control Reason for Visit Reason for Visit: Reason For Visit: CHEST PAIN Hospital Course Hospital Course: Yadiel presented to the hospital with an episode of chest discomfort. Troponin was found to be elevated. She was placed on full dose anticoagulation, aspirin, statin, and cardiology consultation was obtained. Echocardiogram was also performed. This showed an ejection fraction of 56%, 1/4 diastolic dysfunction. Angiogram was performed demonstrating coronary disease as listed above. No intervention could be performed. On September 06 she was doing well. Blood pressure was under fair control. She had had no chest pain. It was thought she could be discharged home. Physical Exam Narrative: EXAM NARRATIVE: General exam no apparent distress Cardiovascular regular in rhythm Lungs clear Abdomen is soft with positive bowel sounds Extremities no cyanosis clubbing or edema, right wrist without significant hematoma. Pulses and hand function intact. Discharge Data Data Completed and Pending: Completed Studies During Hospitalization Category Date Time Status POWER LINE INSTALLER request for service Routin e Exams 09/06/19 18:01 Completed XR chest 1V shayne ble [id number] Stat Exams 09/05/19 05:09 Completed CV echo complete* [id number] Urgent Ultrasound 09/05/19 19:19 Completed Labs from last 24 hours 09/07/19 09/07/19 09/07/19 10:49 06:11 03:05 WBC RBC Hgb Hct MCV MCH MCHC RDW Plt Count MPV Neut % (Auto) Lymph % (Auto) [place] % (Auto) Eos % (Auto) Baso % (Auto) Neut # (Auto) Lymph # (Auto) [place] # (Auto) Eos # (Auto) Baso # (Auto) Nucleated RBC % (a uto) Nucleated RBCs # Sodium 140 Potassium 3.7 Chloride 108 H Carbon Dioxide 21 L Anion Gap 14.7 BUN 10 Creatinine 0.8 Glucose 121 H POC Glucose 148 107 Calculated Osmolal ity 287 Calcium 9.3 09/07/19 09/06/19 09/06/19 03:05 20:17 16:54 WBC 23.7 H RBC 3.63 L Hgb 11.1 L Hct 36.0 L MCV 99.2 H MCH 30.6 MCHC 30.8 RDW 13.3 Plt Count 200 MPV 11.1 H Neut % (Auto) 10.9 Lymph % (Auto) 86.5 [place] % (Auto) 1.3 Eos % (Auto) 1.0 Baso % (Auto) 0.2 Neut # (Auto) 2.6 Lymph # (Auto) 20.5 H [place] # (Auto) 0.3 Eos # (Auto) 0.2 Baso # (Auto) 0.0 Nucleated RBC % (a uto) 0 Nucleated RBCs # 0.0 Sodium Potassium Chloride Carbon Dioxide Anion Gap BUN Creatinine Glucose POC Glucose 121 124 Calculated Osmolal ity Calcium Vitals: Last Vital Signs Temp 98.7 F 09/07/19 07:17 Pulse 63 09/07/19 10:46 Resp 20 H 09/07/19 10:46 BP 142/76 09/07/19 10:46 Pulse Ox 96 09/07/19 10:46 Discharge Plan Discharge Patient Disposition: Home, Self-Care Condition: Stable Prescriptions: New clopidogrel [Plavix] 75 mg tablet 75 mg PO DAILY Qty: 30 RF: 0 nitroglycerin 0.4 mg tablet, sublingual 0.4 mg SUBLINGUAL Q5M PRN (Reason: chest pain) Qty: 20 RF: 0 aspirin [Adult Aspirin Regimen] 81 mg tablet,delayed release (DR/EC) 81 mg PO DAILY Qty: 30 RF: 0 atorvastatin 40 mg Tablet 40 mg PO DAILY Qty: 30 RF: 0 lisinopril 10 mg tablet 10 mg PO DAILY Qty: 30 RF: 0 Continued metformin 500 mg tablet 500 mg PO BID RF: 0 Discontinued aspirin 325 mg Tablet 325 mg PO BID RF: 0 Discharge Orders: Discharge Order (Routine); Ordered 09/07/19 Ordered By: Nino Baxter Referrals: Neli Ybarra MD [Physician] - 7-10 days Discharge Diet: Cardiac and Diabetic Discharge Activity: Increase activity as tolerated Activity Restrictions/Additional Instructions: Take all medicine as prescribed Please have discharge planning arrange for primary care provider follow-up Do not take your metformin, until the 13th secondary to angiogram dye you received. Discharge Attestations Time Spent in Discharge Care*: greater than 30 min Quality Metrics Clinical Quality Measures During this hospital stay, did patient experience: AMI Clinical Trial Participant: No Contraindication to aspirin (AMI): Aspirin given Contraindication to statin: Statin prescribed Contraindication to PCI: Intervention not indicated Coding Level of Care Code Acute Forge Heater for [facility] Fwd Diagnoses Acute non-ST elevation myocardial infarction (NSTEMI) I21.4 Chronic lymphocytic leukemia C91.10 Type 2 diabetes mellitus E11.65 Diabetes mellitus oysterman insulin use: without oysterman use Diabetes mellitus complication status: with hyperglycemia Uncontrolled stage 2 hypertension I10
[2019-09-07] MEDS: clopidogrel 75 mg Tablet PO (11:59)
--- NOTE | 2019-09-07 12:50 | PC.SOCIAL ---
Talon called from pharmacy to see if bottle of nitro tabs can be dispensed which is 25 instead of 20. They are unable to sell less than bottle. This was okay'd to fill 25 tabs/ one bottle per provider.
--- NOTE | 2019-09-07 13:24 | DCPLANNER ---
We were not triggered to see this pt however notified that pt needs a pcp. Went in and talked to pt., 2 daughters and granddaughter. She states that she used to be seen by someone that was in the same office as Reese Delaney. She adds that she doesn't go to the Dr. unless she really needs to. Microarray Analyst asks her if it was Dr. Corrales, she agrees. Neither of her daughters are from around here so they don't know. Microarray Analyst phoned Dr. Corrales's office and talks to Francia who states that pt is one of theirs since she has been seen within the last 3 years so consider her a pt. arranges an appt. on September 12 @ 1120. went back into the room to tell her this and she is delighted.
--- NOTE | 2019-09-07 14:11 | P.PN_ITS ---
Subjective Subjective: Interval history: Patient is feeling okay. Denies any chest pain or shortness of breath. Vital signs remained stable. No arrhythmias on the monitor. Medications: Medication Review Details: Current Medications Acetaminophen (Tylenol) 650 mg PO Q6H PRN PRN Reason: Mild/Mod Pain Or Temp >/= 101 Amlodipine Besylate (Norvasc) 5 mg PO DAILY ON LICENSE OF [facility] Amlodipine Besylate (Norvasc) 5 mg PO NOW ON LICENSE OF [facility] Aspirin (Aspirin Ec) 325 mg PO DAILY ON LICENSE OF [facility] Atorvastatin Calcium (Lipitor) 40 mg PO DAILY ON LICENSE OF [facility] Dextrose (D50w) 25 ml IVP ONCE PRN; Protocol PRN Reason: hypoglycemia protocol Dextrose (D50w) 50 ml IVP PRN PRN; Protocol PRN Reason: hypoglycemia protocol Enoxaparin Sodium (Lovenox) 100 mg 1 mg/kg (100 mg) SUBCUT Q12H ON LICENSE OF [facility] Last Admin: 09/06/19 07:10 Dose: 100 mg Documented by: Glucagon (Glucagen) 1 mg IM ONCE PRN; Protocol PRN Reason: Adult Acute Hypoglycemia Prot. Dextrose (D5w) 500 mls @ 100 mls/hr IV ONCE PRN; Protocol PRN Reason: Adult Acute Hypoglycemia Prot Insulin Aspart (Novolog) 0 unit SUBCUT TIDWM ON LICENSE OF [facility]; Protocol Last Admin: 09/06/19 07:02 Dose: Not Given Documented by: Insulin Aspart (Novolog) 0 unit SUBCUT BEDTIME ON LICENSE OF [facility]; Protocol Last Admin: 09/05/19 22:16 Dose: 2 unit Documented by: Metoprolol Tartrate (Lopressor) 12.5 mg PO BID ON LICENSE OF [facility] Morphine Sulfate (Morphine) 2 mg IVP Q4H PRN PRN Reason: SEVERE PAIN Nitroglycerin (Nitrostat) 0.4 mg SUBLINGUAL Q5M PRN PRN Reason: CHEST PAIN Nitroglycerin (Nitro-Bid) 0.5 inch TOPICAL Q6H ON LICENSE OF [facility] Last Admin: 09/06/19 01:47 Dose: Not Given Documented by: Ondansetron HCl (Zofran) 4 mg IVP Q6H PRN PRN Reason: vomiting, or N/V if npo Vitals/I&O/Wt Last Vital Signs Temp 98.7 F 09/07/19 07:17 Pulse 63 09/07/19 12:42 Resp 20 H 09/07/19 12:42 BP 142/76 09/07/19 12:42 Pulse Ox 96 09/07/19 12:42 09/06/19 09/07/19 09/07/19 22:59 06:59 14:59 Intake Total 600 / 600 Balance 600 / 600 Physical Exam Narrative: EXAM NARRATIVE: GENERAL: The patient is alert and oriented times three. Not in any acute distress. HEENT: No significant pallor, icterus or lymphadenopathy. NECK: Trachea appears to be central. No masses noted. No JVD or thyromegaly andre reciated. No carotid bruit. RESPIRATORY: Chest is symmetrical. No intercostals muscle retraction or any accessory muscle activation. There is no chest wall tenderness. Breath sounds are heard bilaterally. No rales or rhonchi heard. No evidence of any consolidation. BREASTS: Deferred. HEART: The PMI is in the 5th left intercostals space just inside the midclavicular line. No palpable precordial events. S1 and S2 are normal. No S3 or S4 heard. No pericardial rub or any click heard. ABDOMEN: No vessel pulsations or distention. No tenderness. No organomegaly appreciated. No abdominal bruit. Bowel sounds are normally heard. : Deferred. RECTAL: Deferred. LYMPHATIC: No lymphadenopathy noted in the neck or groin. EXTREMITIES: The arterial puncture site has no hematoma or bleeding. MUSCULOSKELETAL: No acute joint deformities or swelling SKIN: There are no significant scars or skin rash noted. NEUROPSYCHIATRIC: The patient is alert and oriented x3. Appears to be in a good mood. The higher functions are grossly within normal limits. No tremors or rigidity noted. Data : 09/07/19 03:05 09/07/19 03:05 A&P Assessment and plan (1) Acute non-ST elevation myocardial infarction (NSTEMI): The cardiac authorization findings are discussed the patient and her family in detail which they understood well. Patient may continue the Plavix and baby aspirin for the next 3 months. Continue other medications as it is. Status: Acute Code(s): I21.4 - Non-ST elevation (NSTEMI) myocardial infarction (2) Chronic lymphocytic leukemia: Patient is known to have chronic leukemia. This is being followed by a medical accounting clerk in [place]. May continue on the current follow-up schedule Status: Acute Code(s): C91.10 - Chronic lymphocytic leukemia of B-cell type not having achieved remissi on (3) Type 2 diabetes mellitus: Aggressive treatment of the diabetes would be appropriate. The blood sugar seems to be coming down. Consider starting the patient on Jardiance, by his primary care physician. This was discussed with the patient Status: Acute Qualifiers: Diabetes mellitus residential insulin use: without residential use Diabetes mellitus complication status: with hyperglycemia Qualified Code(s): E11.65 - Type 2 diabetes mellitus with hyperglycemia Code(s): E11.9 - Type 2 diabetes mellitus without complications (4) Uncontrolled stage 2 hypertension: The blood pressure seems to be fairly under control. It may be appropriate to change the amlodipine to lisinopril. Status: Acute Code(s): I10 - Essential (primary) hypertension Additional A&P Information Dyslipidemia -continue on the current medications If the patient continues remain stable, may be discharged home today. Discussed with Dr. Baxter. She will be seen at the heart care services in 2 weeks Attestations Medical Necessity Statement*: Discharge home today Coding Level of Care Code Acute Organic Preparation Technician for [facility] Diagnoses Acute non-ST elevation myocardial infarction (NSTEMI) I21.4 Chronic lymphocytic leukemia C91.10 Type 2 diabetes mellitus E11.65 Diabetes mellitus residential insulin use: without long term care pharmacist use Diabetes mellitus complication status: with hyperglycemia Uncontrolled stage 2 hypertension I10
== END 2019-09-07 14:14 | disposition home or self-care (01) | DRG 281 ==
LOC: ER 09:28 → CSU 19:04
PROVIDERS: Emergency Medicine; Internal Medicine Cardiovascular Disease; Admitting Provider Internal Medicine; Emergency Provider Family Medicine; Visit Provider Internal Medicine
PROC: B2151ZZ Fluoroscopy of Left Heart using Low Osmolar Contrast (ICD-10-PCS; principal; 2019-09-06 17:30)
DX: I21.4 Non-ST elevation (NSTEMI) myocardial infarction (principal); C91.10 Chronic lymphocytic leukemia of B-cell type not having achieved remission; E11.65 Type 2 diabetes mellitus with hyperglycemia; I10 Essential (primary) hypertension; Z79.82 Long term (current) use of aspirin; Z79.811 Long term (current) use of aromatase inhibitors; Z79.84 Long term (current) use of oral hypoglycemic drugs
CPT/HCPCS: 12345; 36415; 36416; 71045; 80048; 80053; 80061; 81001; 82550; 82962; 83036; 83690; 83880; 84443; 84484; 85025; 85610; 85730; 87804; 93005; 93306; 93452; 96372; 99283; C1769; C1887; C1894; J1644; J1650; J1815; J2001; J2250; J3010; J3490; J7030; Q0163; Q9967

== ENCOUNTER 2022-01-08 08:56 | Emergency (ER) | payer MEDICARE, OTHER, SELFPAY ==
[2022-01-08 09:01] VITALS: BP 200/95; PULSE 78; RESP 16; TEMP 36.2; O2SAT 98
--- NOTE | 2022-01-08 09:01 | XRR_ITS ---
PROCEDURE INFORMATION: Exam: XR Chest Exam date and time: 01/08/2022 9:29 AM Age: 76 years old Clinical indication: Pain; Angina pectoris; Additional info: Chest pain TECHNIQUE: Imaging protocol: Radiologic exam of the chest. Views: 1 view. COMPARISON: CR XR chest 1V portable [id number] 09/05/2019 5:42 AM FINDINGS: Lungs: There are normal lung volumes without confluent interstitial or airspace opacities. Age-related interstitial prominence is seen in the lungs. Pleural spaces: There are no pleural effusions or pneumothorax. Heart/Mediastinum: The heart size is normal. The pulmonary vasculature is normal. There is a mildly tortuous thoracic aorta. The trachea is in the midline. Bones/joints: No acute abnormalities. Mild right shoulder degenerative changes are seen. Soft tissues: Multiple external densities are seen overlying the chest, limiting assessment. XR/XR chest 1V portable [id number] IMPRESSION: No AP view chest radiographic evidence of acute cardiopulmonary disease.
--- NOTE | 2022-01-08 09:01 | ECG_ITS ---
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 Measurements Intervals [place] Rate: 66 P: 12 SD: 136 QRS: -24 QRSD: 86 T: 9 QT: 418 QTc: 440 Interpretive Statements SINUS RHYTHM POSSIBLE ANTERIOR MYOCARDIAL INFARCTION , PROBABLY OLD [30 ms Q WAVE IN V3/V4, OR R < 0.2 mV IN V4] Compared to ECG 09/06/2019 08:53:28 Myocardial infarct finding now present Electronically Signed On 01-08-2022 23:40:00 CDT by Neli Ybarra M.D. [email or web address]
--- NOTE | 2022-01-08 09:14 | PC.NURSE ---
PT GRANDDAUGHTER STATES PTS CURRENT ORIENTATION IS AT BASELINE. FAMILY STATES THEY ARE MOVING PT TO LIVE WITH THEM
--- NOTE | 2022-01-08 09:15 | CT_ITS ---
WS: [id number] CT HEAD NONCONTRAST HISTORY: AMS TECHNIQUE: Contiguous axial imaging performed through the brain in 2.5 mm imaging. Bone and soft tiss ue windows. Sagittal and coronal reformats reviewed. All CT scans at [facility] use at least one of these dose optimization techniques: automated exposure control; mA and/or kV adjustment per pa tient size (includes targeted exams where dose is matched to clinical indication); or iterative recon struction. DLP: 1019.56 mGy.cm COMPARISON: None available. No acute intracranial hemorrhage, midline shift or mass effect. Mild atrophy with moderate small vessel ischemic changes. Prior bilateral lacunar infarcts in the ext ernal capsules. Very small lacunar infarct in the RIGHT basal ganglia. Prior lacunar infarct LEFT maynor lamus. Ventricles: Normal size with no hydrocephalus. No inferior displacement of the cerebellar tonsils. Paranasal sinuses: Mild diffuse mucoperiosteal thickening. Mastoid air cells: Well pneumatized. Calvarium and scalp: Skull is intact with no soft tissue edema or swelling. Extensive calcification and tortuous distal RIGHT vertebral artery. RIGHT vertebral artery crosses th e midline at the foramen magnum extends to the LEFT. Extensive calcifications extend to the cavernous and supraclinoid carotid arteries. CT/CT head wo con* [id number] IMPRESSION: 1. No acute intracranial hemorrhage or edema. 2. Moderate small vessel ischemic disease and numerous prior lacunar infarcts as above. 3. Heavy atherosclerotic plaque within the distal RIGHT vertebral artery and t he intracranial carotid arteries.
--- NOTE | 2022-01-08 09:16 | ED_ITS ---
HPI - Chest Pain General: Chief Complaint: Chest Pain Stated Complaint: cp,ams Time Seen by Provider: 01/08/22 08:59 Source: patient Mode of arrival: ambulatory Limitations: no limitations History of Present Illness: 76-year-old female presents to the emergency room with complaints of chest discomfort and mild altered mental status. Some of the altered mental status is baseline cognitive deficit. Patient complaining of chest pain left-sided chest without radiation no shortness of breath no diaphor esis with it. No fever sweats chills patient was at rest when it began she states the pain has decreased at this point. No vomiting or nausea with it. Patient does states she has past medical history of heart disease but cannot outline that history forming. MD complaint: chest pain Onset (ago): minute(s) Onset: during rest Pain radiation: none Severity: mild Quality: aching and heaviness Relieving factors: nothing Exacerbating factors: nothing Associated symptoms: Deny abdominal pain, diaphoresis, dyspnea, fever(s), leg edema, nausea, palpitations, sense of impending doom, syncope or vomiting Treatment prior to arrival: none Review of Systems Const: Denies: fever(s), chills, fatigue, malaise or diaphoresis ENMT: Denies: throat pain, ear or mastoid pain, nasal discharge or nasal congestion Card: Reports: chest pain; Denies: palpitations or syncope Resp: Reports: productive cough; Denies: dyspnea GI: Denies: abdominal pain, nausea or vomiting : Denies: flank pain, difficulty voiding, dysuria, urinary frequency or urinary urgency Skin/Breast: Denies: rash or pruritus PFSH ED PFSH: Medical History (Updated 01/08/22 @ 12:52 by Brent Lugo DO) ASHD (arteriosclerotic heart disease) Chronic lymphocytic leukemia HTN (hypertension) Hyperlipidemia Recent non-ST elevation myocardial infarction (NSTEMI) Type 2 diabetes mellitus May resume metformin on the Surgical History History of laparoscopic cholecystectomy Status post coronary angiogram Family History Other CAD (coronary artery disease) Diabetes Social History Smoking and tobacco status: never smoked Alcohol intake: never Lives independently: Yes Marital status: / Physical Exam Const: COMMON NORMALS: no acute distress GENERAL APPEARANCE: cooperative and comfortable ORIENTATION/CONSCIOUSNESS: Yes awake HENMT: COMMON NORMALS: normocephalic, atraumatic and hearing grossly normal bilaterally HEAD & SCALP: normocephalic and atraumatic Neck/C-Spine: COMMON NORMALS: full ROM, no lymphadenopathy, supple and no JVD Lymph: LYMPHATIC: no lymphadenopathy noted and no lymphedema noted Resp: COMMON NORMALS: normal respiratory effort, No retractions, No use of accessory muscles and clear to auscultation bilaterally AUSCULTATION: clear to auscultation bilaterally Cardio: COMMON NORMALS: no JVD, regular rate, regular rhythm and No murmurs present (Cardio) RATE: regular rate RHYTHM: regular rhythm GI: COMMON NORMALS: Soft to palpation and No hepatosplenomegaly present AUSCULTATION: Yes normoactive bowel sounds PALPATION: Yes Soft to palpation, No Tenderness to palpation present (GI), No Guarding due to palpation present (GI) and Yes No hepatosplenomegaly present Extremity: COMMON NORMALS: normal to inspection, capillary refill normal, no clubbing, cyanosis or edema, no calf tenderness and no pedal edema Skin: COMMON NORMALS: no rashes or lesions noted GENERAL SKIN EXAM: no rashes or lesions noted Course Vital Signs: Vital signs: Vital Signs Temperature 97.2 F L 01/08/22 09:01 Pulse Rate 69 01/08/22 13:12 Respiratory Rate 16 01/08/22 09:01 Blood Pressure 165/97 01/08/22 13:12 Pulse Oximetry 96 01/08/22 13:12 [facility] - Chest Pain Medical Decision Making Serial troponins and EKG unremarkable patient vomiting any of her medicines for the last 2 years she is anxious to go home daughter is at the bedside with her working and probably getting into a alf per improved level of care. Organ to restart all of her medications and gave scripts for everything with the exception of her lisinopril decreased to 10 mg and added isosorbide mononitrate for cardiac protection discussed this with the daughter they expressed understanding. White count is elevated patient has known leukemia. She janet subramanian feels fine is not having any respiratory symptoms or fever at this time we will discharge patient home follow-up with primary care within the week to reevaluate blood pressure. Set up for a outpatient stress test. Medical Records I reviewed the patient's medical records. Lab Data I reviewed the patient's lab results. : 01/08/22 09:25 01/08/22 09:25 Radiology Impressions Chest X-Ray 01/08/22 09:01 IMPRESSION: No AP view chest radiographic evidence of acute cardiopulmonary disease. Head CT 01/08/22 09:15 IMPRESSION: 1. No acute intracranial hemorrhage or edema. 2. Moderate small vessel ischemic disease and numerous prior lacunar infarcts as above. 3. Heavy atherosclerotic plaque within the distal RIGHT vertebral artery and the intracranial carotid arteries. Laboratory Results WBC 74.9 10^3/uL (4.0-10.0) H* 01/08/22 09:25 RBC 4.22 10^6/uL (4.1-5.3) 01/08/22 09:25 Hgb 13.4 g/dL (11.5-15.3) 01/08/22 09:25 Hct 40.7 % (37.0-47.0) 01/08/22 09:25 MCV 96.4 fl (81-99) 01/08/22 09:25 MCH 31.8 pg (28.0-34.0) 01/08/22 09:25 MCHC 32.9 g/dL (30.0-36.0) 01/08/22 09:25 RDW 13.3 % (12.1-15.1) 01/08/22 09:25 Plt Count 217 10^3/cmm (130-400) 01/08/22 09:25 MPV 10.3 fL (7.4-10.4) 01/08/22 09:25 Neut % (Auto) 6.7 % 01/08/22 09:25 Lymph % (Auto) 91.5 % 01/08/22 09:25 Major % (Auto) 1.4 % 01/08/22 09:25 Eos % (Auto) 0.1 % 01/08/22 09:25 Baso % (Auto) 0.1 % 01/08/22 09:25 Neut # (Auto) 5.03 10^3/uL (1.8-7.7) 01/08/22 09:25 Lymph # (Auto) 68.6 10^3/uL (0.8-4.8) H 01/08/22 09:25 Major # (Auto) 1.0 10^3/uL (0.2-0.9) H 01/08/22 09:25 Eos # (Auto) 0.1 10^3/uL (0.0-0.8) 01/08/22 09:25 Baso # (Auto) 0.1 10^3/uL (0.0-0.1) 01/08/22 09:25 Nucleated RBC % (auto) 0 % 01/08/22 09:25 Nucleated RBCs # 0.0 /100WBC 01/08/22 09:25 Sodium 139 mmol/L (136-145) 01/08/22 09:25 Potassium 3.9 mmol/L (3.5-5.1) 01/08/22 09:25 Chloride 106 mmol/L (98-107) 01/08/22 09:25 Carbon Dioxide 23 mmol/L (22-29) 01/08/22 09:25 Anion Gap 13.9 (5-19) 01/08/22 09:25 BUN 11 mg/dL (8-23) 01/08/22 09:25 Creatinine 0.7 mg/dL (0.5-0.9) 01/08/22 09:25 GFR Calculation Not Reportable 01/08/22 09:25 Glucose 141 mg/dL (65-115) H 01/08/22 09:25 Calculated Osmolality 290 mOsm/kg (285-295) 01/08/22 09:25 Calcium 9.4 mg/dL (8.5-10.5) 01/08/22 09:25 Total Bilirubin 0.8 mg/dL (0.15-1.2) 01/08/22 09:25 AST 18 U/L (0-32) 01/08/22 09:25 ALT 11 U/L (0-33) 01/08/22 09:25 Alkaline Phosphatase 82 IU/L (35-105) 01/08/22 09:25 Troponin T Baseline 23 ng/L (0-10) H 01/08/22 09:25 Troponin T 120 Minute 23.37 ng/L (0-10) H 01/08/22 11:25 Delta Troponin T 0.37 ABS# (0-10) 01/08/22 11:25 Total Protein 6.7 g/dL (6.6-8.7) 01/08/22 09:25 Albumin 4.0 g/dL (3.5-5.2) 01/08/22 09:25 Globulin 2.7 g/dL (1.3-4.6) 01/08/22 09:25 Discharge Plan Discharge Patient Disposition: Home Clinical Impression: Chest pain, Chronic lymphocytic leukemia, HTN (hypertension), Hyperlipidemia, ASHD (arteriosclerotic heart disease), Carotid artery stenosis Condition: Stable Prescriptions: New isosorbide mononitrate 30 mg tablet extended release 24 hr 30 mg PO DAILY Qty: 30 0RF lisinopril 10 mg tablet 10 mg PO DAILY Qty: 30 0RF clopidogrel 75 mg tablet 75 mg PO DAILY Qty: 30 0RF aspirin 81 mg tablet,delayed release (DR/EC) 81 mg PO DAILY Qty: 30 0RF atorvastatin 40 mg tablet 40 mg PO DAILY Qty: 30 0RF metformin 500 mg tablet 500 mg PO DAILY Qty: 30 0RF nitroglycerin 0.4 mg tablet, sublingual 0.4 mg sublingual Q5M PRN (Reason: chest pain) Qty: 30 0RF Rx Instructions: do not exceed 3 doses per episode Discontinued metformin 500 mg tablet 500 mg PO BID PRN (Reason: when pt remembers) 0RF nitroglycerin 0.4 mg tablet, sublingual 0.4 mg SUBLINGUAL Q5M PRN (Reason: chest pain) Qty: 20 0RF Rx Instructions: until response; do not exceed 3 doses per episode atorvastatin 40 mg tablet 40 mg PO DAILY PRN (Reason: when pt remembers) 0RF lisinopril 20 mg tablet 20 mg PO DAILY PRN (Reason: when pt remembers) 0RF clopidogrel [Plavix] 75 mg tablet 75 mg PO DAILY PRN (Reason: when pt remembers) 0RF aspirin [Adult Aspirin Regimen] 81 mg tablet,delayed release (DR/EC) 81 mg PO DAILY PRN (Reason: when pt remembers) 0RF Discharge Orders: Discharge ED (Routine); Ordered 01/08/22 Ordered By: Brent Lugo Referrals: Alphonse Corrales [Primary Care Provider] - Patient Instructions: Opioid Safety Activity Restrictions/Additional Instructions: Recommend that you establish with a new primary care doctor where you are moving to and have a stress test done as well as an echocardiogram carotid duplex. Coding Level of Care Code ED Cyber Instructor for Chg Fwd Exam Comprehensive
[2022-01-08 09:30] LABS: Basophils # 0.1 10^3/uL (0.0-0.1); Basophils % 0.1 %; Eosinophils # 0.1 10^3/uL (0.0-0.8); Eosinophils % 0.1 %; Hematocrit 40.7 % (37.0-47.0); Hemoglobin 13.4 g/dL (11.5-15.3); Lymphocytes # 68.6 10^3/uL (0.8-4.8); Lymphocytes % 91.5 %; Mean Corpuscular HGB Conc 32.9 g/dL (30.0-36.0); Mean Corpuscular Hemoglobin 31.8 pg (28.0-34.0); Mean Corpuscular Volume 96.4 fl (81-99); Mean Platelet Volume 10.3 fL (7.4-10.4); Monocytes % 1.4 %; Neutrophils # 5.03 10^3/uL (1.8-7.7); Neutrophils % 6.7 %; Nucleated Red Blood Cells % 0 %; Platelet Count 217 10^3/cmm (130-400); Red Blood Count 4.22 10^6/uL (4.1-5.3); Red Cell Distribution Width 13.3 % (12.1-15.1)
[2022-01-08] MEDS: aspirin 81 mg Chew Tablet 324 MG PO (09:34)
--- NOTE | 2022-01-08 09:39 | PC.PHAR ---
PT AND PTS GRANDDAUGHTER ST SHE ONLY TAKES HER MEDICATION WHEN SHE THINKS ABOUT IT- ALL PTS MEDS WERE LAST FILLED 08/2021. PT TOOK 1 40MG ATORVASTATIN THIS AM. CALLED PT PHARMACY AND THEY VERIFIED THEY HAVE NOT FILLED SINCE AUGUST OF 2019. PT HAD MEDICATION BOTTLES WITH HER WELL
[2022-01-08 09:52] LABS: Alanine Aminotransferase 11 U/L (0-33); Alkaline Phosphatase 82 IU/L (35-105); Anion Gap 13.9 (5-19); Aspartate Amino Transferase 18 U/L (0-32); Blood Urea Nitrogen 11 mg/dL (8-23); Calcium 9.4 mg/dL (8.5-10.5); Carbon Dioxide 23 mmol/L (22-29); Chloride 106 mmol/L (98-107); Globulin 2.7 g/dL (1.3-4.6); Glucose 141 mg/dL (65-115); Osmolality Calculated 290 mOsm/kg (285-295); Potassium 3.9 mmol/L (3.5-5.1); Sodium 139 mmol/L (136-145); Total Bilirubin 0.8 mg/dL (0.15-1.2); Total Protein 6.7 g/dL (6.6-8.7)
[2022-01-08 09:58] LABS: Slide Review Slide Review Perform; White Blood Count 74.9 10^3/uL (4.0-10.0)
[2022-01-08 10:06] LABS: Troponin(5th) Baseline 23 ng/L (0-10)
[2022-01-08 12:00] LABS: Troponin 5 2HR 23.37 ng/L (0-10)
[2022-01-08 12:02] LABS: Troponin 5 2HR Delta 0.37 ABS# (0-10)
[2022-01-08 13:12] VITALS: BP 165/97; PULSE 69; O2SAT 96
== END 2022-01-08 13:14 | disposition home or self-care (01) ==
PROVIDERS: Emergency Provider Family Medicine; PCP Family Medicine
DX: R07.9 Chest pain, unspecified (principal); C91.10 Chronic lymphocytic leukemia of B-cell type not having achieved remission; I10 Essential (primary) hypertension; E78.5 Hyperlipidemia, unspecified; I25.10 Atherosclerotic heart disease of native coronary artery without angina pectoris; I65.29 Occlusion and stenosis of unspecified carotid artery; Z79.02 Long term (current) use of antithrombotics/antiplatelets; Z79.82 Long term (current) use of aspirin; I25.2 Old myocardial infarction; E11.9 Type 2 diabetes mellitus without complications
CPT/HCPCS: 70450; 71045; 80053; 84484; 85025; 93005; 99285